=== PATIENT | male | born 1985 | race Caucasian/White ===

== ENCOUNTER 2017-02-18 11:26 | Emergency (ER) | payer SELFPAY ==
[2017-02-18] MEDS ORDERED: IPRATROPIUM-ALBUTEROL 3 ML NEB INHALATION STA (12:06)
[2017-02-18] MEDS ORDERED: methylPREDNISolone SOD SUCCI 125 MG/2 ML VIAL IV STA (12:06)
[2017-02-18] MEDS ORDERED: SODIUM CHLORIDE 0.9% 500 ML IV STA (12:06)
[2017-02-18] MEDS ORDERED: cefTRIAXone 2,000 MG in SODIUM CHLORIDE 0.9% 100 ML IVPB STA (12:11)
[2017-02-18 12:47] LABS: Basophils % (A) 1 %; CH 29.2; CHCM 35.4; Eosinophils # (A) 0.1 k/uL (0-0.7); Eosinophils % (A) 2 %; HCT 44.8 % (39.0-53.0); HDW 3.06; HGB 15.7 gm/dL (13.0-17.5); Luc # (Auto) 0.17; Luc % (Auto) 4; Lymphocytes # (A) 1.3 k/uL (1.0-4.8); Lymphocytes % (A) 26 %; MCH 29.1 pg (25.0-35.0); MCHC 35.1 g/dL (31.0-37.0); Mean Platelet Volume 7.4; Monocytes # (A) 0.3 k/uL (0-1.0); Monocytes % (A) 6 %; Neutrophils # (A) 3.1 k/uL (1.3-7.7); Neutrophils % (A) 62 %; RDW 13.3 % (11.5-15.5); WBC 4.9 k/uL (3.8-10.6); WBC (Perox) 5.13
--- NOTE | 2017-02-18 12:54 | XR ---
EXAMINATION TYPE: XR chest 2V DATE OF EXAM: 02/18/2017 COMPARISON: NONE HISTORY: Cough and congestion with shortness of breath rule out pneumonia TECHNIQUE: Frontal and lateral views of the chest are obtained. FINDINGS: Seen on 2 views there appears to be increased opacity right middle lobe worrisome for deve loping infiltrate. Left lung is clear. No pleural effusion or pneumothorax is seen bilaterally. The c ardiac silhouette size is within normal limits. The osseous structures are intact. IMPRESSION: Suspicious opacity worrisome for developing right middle lobe infiltrate.
[2017-02-18 12:57] LABS: Anion Gap 8 mmol/L; Blood Urea Nitrogen 8 mg/dL (9-20); Calcium 9.2 mg/dL (8.4-10.2); Carbon Dioxide 24 mmol/L (22-30); Chloride 109 mmol/L (98-107); Glucose 106 mg/dL (74-99); Non-African American GFR(MDRD) >60 (>60 ml/min/1.73 sqM); Potassium 4.3 mmol/L (3.5-5.1); Sodium 141 mmol/L (137-145)
--- NOTE | 2017-02-18 13:30 | ED ---
URI HPI - General Chief Complaint: Upper Respiratory Infection Stated Complaint: WILFRIDO, BACK PAIN, WHEEZING, FEVER Time Seen by Provider: 02/18/17 11:59 Source: patient Mode of arrival: ambulatory Limitations: no limitations - History of Present Illness Initial Comments: 32 years old male mentioned to the last 6 days, been coughing he did spit up some blood as well and he is not able to bring up a bunch of phlegm he feels it stuck to Bring it up. He been previously had a fever off-and-on for the last few days he does have a history of tobacco dependence were also 18 years he felt quite sec wasn't able to go to work yesterday and today. Also complains about chest pain only with deep breaths no trauma to the chest, degree of system is unremarkable otherwise - Related Data Previous Rx's Medication Instructions Recorded Levofloxacin [Levaquin] 750 mg PO DAILY #7 tab 02/18/17 Allergies Allergy/AdvReac Type Severity Reaction Status Date / Time No Known Allergies Allergy Verified 02/18/17 11:43 Review of Systems ROS Statement: Those systems with pertinent positive or pertinent negative responses have been documented in the HPI. ROS Other: All systems not noted in ROS Statement are negative. Past Medical History Additional Past Medical History / Comment(s): Hepatitic C History of Any Multi-Drug Resistant Organisms: None Reported Past Surgical History: No Surgical Hx Reported Past Psychological History: No Psychological Hx Reported Smoking Status: Current every day smoker Past Alcohol Use History: None Reported Past Drug Use History: Marijuana General Exam - General Exam Comments Initial Comments: General: The patient is awake and alert, in no distress, and does not appear acutely ill. There is no coughing quite bad Skin: Skin is warm and dry and no rashes or lesions are noted. Eye: Pupils are equal, round and reactive to light, extra-ocular movements are intact; there is normal conjunctiva bilaterally. Ears, nose, mouth and throat: There are moist mucous membranes and no oral lesions. Neck: The neck is supple, there is no tenderness or JVD. Cardiovascular: There is a regular rate and rhythm. No murmur, rub or gallop is appreciated. Respiratory: To auscultation bilateral, noticed some crackles on the right side and he is wheezing bilateral Gastrointestinal: Soft, non-distended, non-tender abdomen without masses or organomegaly noted. There is no rebound or guarding present. Bowel sounds are unremarkable. Back: There is no tenderness to palpation in the midline. There is no obvious deformity. Musculoskeletal: Normal ROM, no tenderness, There is no pedal edema. There is no calf tenderness or swelling. No cords were appreciated. Neurological: CN II-XII intact, Cranial nerves III through XII are intact. There are no obvious motor or sensory deficits. Coordination appears grossly intact. Speech is normal. Psychiatric: Cooperative, appropriate mood & affect, normal judgment. Limitations: no limitations Course Vital Signs 02/18/17 02/18/17 02/18/17 11:32 12:19 12:25 Temperature 97.4 F L Pulse Rate 85 84 80 Respiratory 18 Rate Blood Pressure 131/69 O2 Sat by Pulse 95 Oximetry Labs are reviewed along with the imaging, CBC is normal, d-dimer is negative chest x-ray points out towards developing infiltrate and exam is consistent with a COPD Medical Decision Making - Lab Data Result diagrams: 02/18/17 12:30 02/18/17 12:30 Lab Results 02/18/17 02/18/17 02/18/17 Range/Units 12:30 12:30 12:30 WBC 4.9 (3.8-10.6) k/uL RBC 5.40 (4.30-5.90) m/uL Hgb 15.7 (13.0-17.5) gm/dL Hct 44.8 (39.0-53.0) % MCV 83.0 (80.0-100.0) fL MCH 29.1 (25.0-35.0) pg MCHC 35.1 (31.0-37.0) g/dL RDW 13.3 (11.5-15.5) % Plt Count 236 (150-450) k/uL Neutrophils % 62 % Lymphocytes % 26 % Monocytes % 6 % Eosinophils % 2 % Basophils % 1 % Neutrophils # 3.1 (1.3-7.7) k/uL Lymphocytes # 1.3 (1.0-4.8) k/uL Monocytes # 0.3 (0-1.0) k/uL Eosinophils # 0.1 (0-0.7) k/uL Basophils # 0.0 (0-0.2) k/uL D-Dimer 0.57 (<0.60) mg/L FEU Sodium 141 (137-145) mmol/L Potassium 4.3 (3.5-5.1) mmol/L Chloride 109 H (98-107) mmol/L Carbon Dioxide 24 (22-30) mmol/L Anion Gap 8 mmol/L BUN 8 L (9-20) mg/dL Creatinine 0.70 (0.66-1.25) mg/dL Est GFR (MDRD) Af Amer >60 (>60 ml/min/1.73 sqM) Est GFR (MDRD) Non-Af >60 (>60 ml/min/1.73 sqM) Glucose 106 H (74-99) mg/dL Calcium 9.2 (8.4-10.2) mg/dL Influenza Type A RNA (Not Detectd) Influenza Type B (PCR) (Not Detectd) 02/18/17 Range/Units 12:30 WBC (3.8-10.6) k/uL RBC (4.30-5.90) m/uL Hgb (13.0-17.5) gm/dL Hct (39.0-53.0) % MCV (80.0-100.0) fL MCH (25.0-35.0) pg MCHC (31.0-37.0) g/dL RDW (11.5-15.5) % Plt Count (150-450) k/uL Neutrophils % % Lymphocytes % % Monocytes % % Eosinophils % % Basophils % % Neutrophils # (1.3-7.7) k/uL Lymphocytes # (1.0-4.8) k/uL Monocytes # (0-1.0) k/uL Eosinophils # (0-0.7) k/uL Basophils # (0-0.2) k/uL D-Dimer (<0.60) mg/L FEU Sodium (137-145) mmol/L Potassium (3.5-5.1) mmol/L Chloride (98-107) mmol/L Carbon Dioxide (22-30) mmol/L Anion Gap mmol/L BUN (9-20) mg/dL Creatinine (0.66-1.25) mg/dL Est GFR (MDRD) Af Amer (>60 ml/min/1.73 sqM) Est GFR (MDRD) Non-Af (>60 ml/min/1.73 sqM) Glucose (74-99) mg/dL Calcium (8.4-10.2) mg/dL Influenza Type A RNA Not Detected (Not Detectd) Influenza Type B (PCR) Not Detected (Not Detectd) Disposition Clinical Impression: Pneumonia, COPD (chronic obstructive pulmonary disease) Disposition: HOME SELF-CARE Condition: Good Instructions: Pneumonia (ED) Prescriptions: Levofloxacin [Levaquin] 750 mg PO DAILY #7 tab Referrals: None,Stated [Primary Care Provider] - 1-2 days
[2017-02-18] MEDS ORDERED: AZITHROMYCIN 500 MG TAB PO STA (13:31)
[2017-02-18 14:02] VITALS: BP 117/56; PULSE 83; RESP 16; TEMP 98.1
== END 2017-02-18 14:07 | disposition home or self-care (01) ==
LOC: EC 11:26
DX: J44.0 Chronic obstructive pulmonary disease with (acute) lower respiratory infection (principal); J18.9 Pneumonia, unspecified organism; F17.200 Nicotine dependence, unspecified, uncomplicated
CPT/HCPCS: 36415; 94640; 85379; 80048; 85025; 87502; 71020; 99284; 96365; 96366; 96375; J2930; J0696

== ENCOUNTER 2017-03-30 08:41 | Emergency (ER) | payer OTHER ==
[2017-03-30 08:48] VITALS: RESP 18; TEMP 97.8
[2017-03-30] MEDS ORDERED: ONDANSETRON 4 MG/2 ML VIAL IVP STA (09:01)
[2017-03-30] MEDS ORDERED: KETOROLAC 30 MG/ML 1 ML VIAL IVP STA (09:01)
[2017-03-30] MEDS ORDERED: SODIUM CHLORIDE 0.9% 500 ML IV STA (09:01)
[2017-03-30] MEDS ORDERED: SODIUM CHLORIDE 0.9% 1,000 ML IV STA (09:01)
--- NOTE | 2017-03-30 09:37 | ED ---
Abdominal Pain HPI - General Chief Complaint: Abdominal Pain Stated Complaint: side pain Time Seen by Provider: 03/30/17 08:49 Source: patient, RN notes reviewed Mode of arrival: ambulatory Limitations: no limitations - History of Present Illness Initial Comments: This a 32-year-old male presents emergency Department chief complaint left side pain. Patient states pain started yesterday was sudden onset of pain. Patient states pain radiates on his left low back to his left lower abdomen. Patient states that nothing makes the pain feel better or worse. Patient's had some nausea no vomiting no diarrhea no constipation. He states his urine looked very dark ashtray when it started. He states that he developed bloody though. Denies any dysuria, chest pain or shortness breath. - Related Data Previous Rx's Medication Instructions Recorded Acetaminophen-Codeine 300-30mg 1 tab PO Q4H PRN #20 tablet 03/30/17 [Tylenol #3] Ibuprofen [Motrin] 600 mg PO Q8HR PRN #30 tab 03/30/17 Allergies Allergy/AdvReac Type Severity Reaction Status Date / Time No Known Allergies Allergy Verified 03/30/17 09:13 Review of Systems ROS Statement: Those systems with pertinent positive or pertinent negative responses have been documented in the HPI. ROS Other: All systems not noted in ROS Statement are negative. Past Medical History Additional Past Medical History / Comment(s): Hepatitic C History of Any Multi-Drug Resistant Organisms: None Reported Past Surgical History: No Surgical Hx Reported Past Psychological History: No Psychological Hx Reported Smoking Status: Current every day smoker Past Alcohol Use History: None Reported Past Drug Use History: Marijuana General Exam Limitations: no limitations General appearance: alert, in no apparent distress Head exam: Present: atraumatic, normocephalic, normal inspection Respiratory exam: Present: normal lung sounds bilaterally. Absent: respiratory distress, wheezes, rales, rhonchi, stridor Cardiovascular Exam: Present: regular rate, normal rhythm, normal heart sounds. Absent: systolic murmur, diastolic murmur, rubs, gallop, clicks GI/Abdominal exam: Present: soft, normal bowel sounds. Absent: distended, tenderness, guarding, rebound, rigid Back exam: Absent: CVA tenderness (R), CVA tenderness (L) Skin exam: Present: warm, dry, intact, normal color. Absent: rash Course Vital Signs 03/30/17 03/30/17 08:45 10:42 Temperature 97.8 F Pulse Rate 93 68 Respiratory 18 18 Rate Blood Pressure 129/77 124/58 O2 Sat by Pulse 99 96 Oximetry Medical Decision Making - Medical Decision Making 32-year-old male presented unresponsive for left flank pain. Patient's lab work , x-ray was reviewed there is no acute abnormality. Patient does not have any anterior more consistent with stone. Patient pain may be muscle skeletal in nature at this time. Patient will be discharged advised follow-up with PCP return parameters were discussed. - Lab Data Result diagrams: 03/30/17 09:15 03/30/17 09:15 Lab Results 03/30/17 03/30/17 03/30/17 Range/Units 09:15 09:15 09:25 WBC 7.7 (3.8-10.6) k/uL RBC 5.12 (4.30-5.90) m/uL Hgb 14.9 (13.0-17.5) gm/dL Hct 44.7 (39.0-53.0) % MCV 87.3 (80.0-100.0) fL MCH 29.0 (25.0-35.0) pg MCHC 33.3 (31.0-37.0) g/dL RDW 13.5 (11.5-15.5) % Plt Count 242 (150-450) k/uL Neutrophils % 68 % Lymphocytes % 16 % Monocytes % 10 % Eosinophils % 2 % Basophils % 1 % Neutrophils # 5.2 (1.3-7.7) k/uL Lymphocytes # 1.2 (1.0-4.8) k/uL Monocytes # 0.7 (0-1.0) k/uL Eosinophils # 0.2 (0-0.7) k/uL Basophils # 0.0 (0-0.2) k/uL Sodium 139 (137-145) mmol/L Potassium 4.4 (3.5-5.1) mmol/L Chloride 107 (98-107) mmol/L Carbon Dioxide 23 (22-30) mmol/L Anion Gap 9 mmol/L BUN 9 (9-20) mg/dL Creatinine 0.81 (0.66-1.25) mg/dL Est GFR (MDRD) Af Amer >60 (>60 ml/min/1.73 sqM) Est GFR (MDRD) Non-Af >60 (>60 ml/min/1.73 sqM) Glucose 91 (74-99) mg/dL Calcium 8.9 (8.4-10.2) mg/dL Total Bilirubin 0.6 (0.2-1.3) mg/dL AST 54 (17-59) U/L ALT 89 H (21-72) U/L Alkaline Phosphatase 125 (38-126) U/L Total Protein 6.9 (6.3-8.2) g/dL Albumin 3.6 (3.5-5.0) g/dL Amylase 73 (30-110) U/L Lipase 89 (23-300) U/L Urine Color Yellow Urine Appearance Clear (Clear) Urine pH 6.0 (5.0-8.0) Ur Specific Lydia 1.010 (1.001-1.035) Urine Protein Negative (Negative) Urine Glucose (UA) Negative (Negative) Urine Ketones Negative (Negative) Urine Blood Negative (Negative) Urine Nitrite Negative (Negative) Urine Bilirubin Negative (Negative) Urine Urobilinogen <2.0 (<2.0) mg/dL Ur Leukocyte Esterase Negative (Negative) Disposition Clinical Impression: Flank pain Disposition: HOME SELF-CARE Condition: Stable Instructions: Flank Pain (ED) Additional Instructions: Please return to the Emergency Department if symptoms worsen or any other concerns. Prescriptions: Acetaminophen-Codeine 300-30mg [Tylenol #3] 1 tab PO Q4H PRN #20 tablet PRN Reason: pain Ibuprofen [Motrin] 600 mg PO Q8HR PRN #30 tab PRN Reason: Pain Referrals: None,Stated [Primary Care Provider] - 1-2 days Isabel Barnett MD [STAFF PHYSICIAN] - 1-2 days Time of Disposition: 10:47
[2017-03-30 09:42] LABS: Appearance,Urine Clear (Clear); Bilirubin,Urine Negative (Negative); Glucose,Urine (UA) Negative (Negative); Ketones,Urine Negative (Negative); Leukocyte Esterase,Urine Negative (Negative); Nitrite,Urine Negative (Negative); Protein,Urine Negative (Negative); UA Billing (MACRO vs. MICRO) CHEM; Urobilinogen,Urine <2.0 mg/dL (<2.0)
[2017-03-30 09:49] LABS: Basophils % (A) 1 %; CH 29.6; CHCM 34.1; Eosinophils # (A) 0.2 k/uL (0-0.7); Eosinophils % (A) 2 %; HCT 44.7 % (39.0-53.0); HDW 2.78; HGB 14.9 gm/dL (13.0-17.5); Luc # (Auto) 0.28; Luc % (Auto) 4; Lymphocytes # (A) 1.2 k/uL (1.0-4.8); Lymphocytes % (A) 16 %; MCHC 33.3 g/dL (31.0-37.0); MCV 87.3 fL (80.0-100.0); Mean Platelet Volume 7.1; Monocytes # (A) 0.7 k/uL (0-1.0); Monocytes % (A) 10 %; Neutrophils # (A) 5.2 k/uL (1.3-7.7); Neutrophils % (A) 68 %; RBC 5.12 m/uL (4.30-5.90); RDW 13.5 % (11.5-15.5); WBC 7.7 k/uL (3.8-10.6); WBC (Perox) 7.58
[2017-03-30 09:50] LABS: ALT 89 U/L (21-72); AST 54 U/L (17-59); Alkaline Phosphatase 125 U/L (38-126); Amylase 73 U/L (30-110); Anion Gap 9 mmol/L; Blood Urea Nitrogen 9 mg/dL (9-20); Calcium 8.9 mg/dL (8.4-10.2); Carbon Dioxide 23 mmol/L (22-30); Chloride 107 mmol/L (98-107); Glucose 91 mg/dL (74-99); Non-African American GFR(MDRD) >60 (>60 ml/min/1.73 sqM); Potassium 4.4 mmol/L (3.5-5.1); Sodium 139 mmol/L (137-145); Total Bilirubin 0.6 mg/dL (0.2-1.3); Total Protein 6.9 g/dL (6.3-8.2)
[2017-03-30 10:44] VITALS: BP 124/58; PULSE 68
--- NOTE | 2017-03-30 18:26 | XR ---
EXAMINATION TYPE: XR KUB DATE OF EXAM: 03/30/2017 COMPARISON: NONE HISTORY: Left flank pain TECHNIQUE: 2 views FINDINGS: Bowel gas pattern is normal. There is no sign of intestinal obstruction or pneumoperitoneum . Fecal pattern is normal. There are no pathologic calcifications. Lung bases are clear. There is no sign of a mass. Bony structures appear intact. IMPRESSION: Nonacute abdomen.
== END 2017-03-30 11:01 | disposition home or self-care (01) ==
LOC: EC 08:41
DX: R10.9 Unspecified abdominal pain (principal); R11.0 Nausea; F17.200 Nicotine dependence, unspecified, uncomplicated
CPT/HCPCS: 99284 ×2; 96374 ×2; 96375 ×2; 96361 ×2; 36415; 80053; 82150; 83690; 85025; 81003; 74000; J2405; J1885

== ENCOUNTER 2017-04-12 06:57 | Emergency (ER) | payer OTHER ==
[2017-04-12 07:03] VITALS: RESP 16; TEMP 97.4
[2017-04-12] MEDS ORDERED: METOCLOPRAMIDE 5 MG/ML 2 ML VIAL IM ONE (07:29)
--- NOTE | 2017-04-12 07:31 | ED ---
General Adult HPI - General Chief complaint: Headache Stated complaint: Headache, Dizzy Time Seen by Provider: 04/12/17 07:23 Source: patient, RN notes reviewed, old records reviewed Mode of arrival: wheelchair Limitations: no limitations - History of Present Illness Initial comments: Patient is a pleasant 32-year-old male presenting to the emergency department with complaints of headache. Onset was yesterday evening. Gradual onset over a few hours. Headache is on the top of the head. Headache has been severe as 8 /10 however currently a 6 or 7/10. Patient does have some photophobia. Patient has also had some nausea without vomiting. Patient feels somewhat lightheaded. No weakness. No confusion. No history of chronic headaches. - Related Data Previous Rx's Medication Instructions Recorded Acetaminophen-Codeine 300-30mg 1 tab PO Q4H PRN #20 tablet 03/30/17 [Tylenol #3] Ibuprofen [Motrin] 600 mg PO Q8HR PRN #30 tab 03/30/17 Metoclopramide HCl [Reglan] 10 mg PO Q6HR PRN #15 tablet 04/12/17 Allergies Allergy/AdvReac Type Severity Reaction Status Date / Time No Known Allergies Allergy Verified 04/12/17 08:08 Review of Systems ROS Statement: Those systems with pertinent positive or pertinent negative responses have been documented in the HPI. ROS Other: All systems not noted in ROS Statement are negative. Constitutional: Denies: fever Eyes: Denies: eye pain ENT: Denies: ear pain Respiratory: Denies: cough Cardiovascular: Denies: chest pain Endocrine: Denies: fatigue Gastrointestinal: Denies: abdominal pain Genitourinary: Denies: dysuria Musculoskeletal: Denies: back pain Skin: Denies: rash Neurological: Reports: headache. Denies: weakness Past Medical History Additional Past Medical History / Comment(s): Hepatitic C History of Any Multi-Drug Resistant Organisms: None Reported Past Surgical History: No Surgical Hx Reported Past Psychological History: No Psychological Hx Reported Smoking Status: Current every day smoker Past Alcohol Use History: None Reported Past Drug Use History: Marijuana General Exam Limitations: no limitations General appearance: alert, in no apparent distress Head exam: Present: atraumatic Eye exam: Present: normal appearance, PERRL, EOMI. Absent: nystagmus ENT exam: Present: normal oropharynx Neck exam: Present: normal inspection. Absent: meningismus Respiratory exam: Present: normal lung sounds bilaterally Cardiovascular Exam: Present: regular rate, normal rhythm GI/Abdominal exam: Present: soft. Absent: tenderness Extremities exam: Present: normal inspection Neurological exam: Present: alert, oriented X3, CN II-XII intact. Absent: motor sensory deficit Expanded Speech: Present: fluid speech Cranial nerves: EOM's Intact: Normal, Facial Sensation: Normal Sensory exam: Upper Extremity Light Touch: Normal, Lower Extremity Light Touch: Normal Motor strength exam: RUE: 5, LUE: 5, RLE: 5, LLE: 5 Eye Response: (4) open spontaneously Motor Response: (6) obeys commands Verbal Response: (5) oriented Psychiatric exam: Present: normal affect, normal mood Skin exam: Present: normal color Course Vital Signs 04/12/17 07:01 Temperature 97.4 F L Pulse Rate 90 Respiratory 16 Rate Blood Pressure 113/70 O2 Sat by Pulse 96 Oximetry Medical Decision Making - Medical Decision Making Patient reevaluated and improved. Patient states discomfort is tolerable. Patient requests work note for today and return tomorrow without restrictions. - Radiology Data Radiology results: image reviewed (Computed tomography scan of the brain shows no acute process) Disposition Clinical Impression: Cephalgia Disposition: HOME SELF-CARE Condition: Stable Instructions: Acute Headache (ED) Additional Instructions: Please follow-up with your DrJuan R in the next day or 2 for recheck. Return for weakness, confusion, fever, worsening or changing symptoms or other concerns. Prescriptions: Metoclopramide HCl [Reglan] 10 mg PO Q6HR PRN #15 tablet PRN Reason: Nausea Referrals: Nicole Bruce MD [Primary Care Provider] - 1-2 days Time of Disposition: 08:36
--- NOTE | 2017-04-12 08:04 | CT ---
EXAMINATION TYPE: CT brain wo con DATE OF EXAM: 04/12/2017 COMPARISON: NONE HISTORY: Headache, Dizziness CT DLP: 1054.[address] of the brain was performed. The ventricles, basal cisterns and sulci overlying the cerebral convexities demonstrate a normal appe arance. There is no evidence for intracranial hemorrhage or sulcal effacement. No mass effects are seen. Osseous calvarium is intact. If symptoms persist consider MRI as clinically warranted. IMPRESSION: 1. No acute intracranial process is seen at this time.
[2017-04-12 09:42] VITALS: BP 111/56; PULSE 79
== END 2017-04-12 09:39 | disposition home or self-care (01) ==
LOC: EC 06:57
DX: R51 Headache (principal); R11.0 Nausea; R42 Dizziness and giddiness; H53.149 Visual discomfort, unspecified; F17.200 Nicotine dependence, unspecified, uncomplicated
CPT/HCPCS: 70450; 99284; 96372; J2765

== ENCOUNTER 2018-03-06 13:28 | Inpatient (IN) | payer MEDICAID, OTHER ==
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
[2018-03-06] MEDS ORDERED: MAGNESIUM HYDROXIDE 2,400 MG/10 ML CUP PO PRN (18:36)
[2018-03-06] MEDS ORDERED: ZIPRASIDONE 20 MG VIAL IM PRN (18:36)
[2018-03-06] MEDS ORDERED: ACETAMINOPHEN TAB 325 MG TAB PO PRN (18:36)
[2018-03-06] MEDS ORDERED: LORazepam 1 MG TAB PO PRN (18:36)
[2018-03-06] MEDS ORDERED: MAG HYDROX/AL HYDROX/SIMETH 30 ML CUP PO PRN (18:36)
[2018-03-06 18:49] VITALS: BMI 30.6
[2018-03-07 09:14] LABS: Basophils % (A) 1 %; Eosinophils # (A) 0.2 k/uL (0-0.7); Eosinophils % (A) 4 %; HCT 46.6 % (39.0-53.0); HGB 15.4 gm/dL (13.0-17.5); Lymphocytes % (A) 33 %; MCH 28.6 pg (25.0-35.0); MCV 86.8 fL (80.0-100.0); Mean Platelet Volume 6.9; Monocytes # (A) 0.6 k/uL (0-1.0); Monocytes % (A) 10 %; Neutrophils # (A) 3.1 k/uL (1.3-7.7); Neutrophils % (A) 51 %; Platelet Count 241 k/uL (150-450); RBC 5.36 m/uL (4.30-5.90); RDW 13.8 % (11.5-15.5)
[2018-03-07 09:24] LABS: ALT 984 U/L (21-72); AST 619 U/L (17-59); Albumin 4.2 g/dL (3.5-5.0); Alkaline Phosphatase 165 U/L (38-126); Anion Gap 9 mmol/L; Blood Urea Nitrogen 11 mg/dL (9-20); Calcium 9.4 mg/dL (8.4-10.2); Carbon Dioxide 26 mmol/L (22-30); Chloride 105 mmol/L (98-107); Glucose 91 mg/dL (74-99); Potassium 4.6 mmol/L (3.5-5.1); Sodium 140 mmol/L (137-145); Total Bilirubin 1.4 mg/dL (0.2-1.3); Total Protein 7.7 g/dL (6.3-8.2)
[2018-03-07] MEDS: NICOTINE 14MG/24HR PATCH TRANSDERM SCH ×2 (10:22→13:41)
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
[2018-03-07 16:54] LABS: Appearance,Urine Clear (Clear); Bilirubin,Urine Negative (Negative); Blood,Urine Negative (Negative); Color,Urine Yellow; Glucose,Urine (UA) Negative (Negative); Ketones,Urine Negative (Negative); Leukocyte Esterase,Urine Negative (Negative); Nitrite,Urine Negative (Negative); Protein,Urine Negative (Negative); Specific Gravity,Urine 1.016 (1.001-1.035)
[2018-03-07 17:04] LABS: Amphetamine Screen,Urine Not Detected (NotDetected); Barbiturate Screen,Urine Not Detected (NotDetected); Benzodiazepines Screen,Urine Not Detected (NotDetected); Cocaine Screen,Urine Not Detected (NotDetected); Methadone Screen, Urine Not Detected (NotDetected); Opiate Screen,Urine Not Detected (NotDetected); Oxycodone Screen, Urine Not Detected (NotDetected); Phencyclidine Screen,Urine Not Detected (NotDetected); Tricyclic Antidepressant,Urine Not Detected (NotDetected); Urn Cannabinoid Scrn Detected (NotDetected)
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
[2018-03-07] MEDS: IOPAMIDOL-300 CONTRAST 30 ML VIAL (ORAL USE) PO PRN ×2 (18:18→19:28)
[2018-03-07] MEDS ORDERED: lamoTRIgine 25 MG TAB PO SCH (20:00)
--- NOTE | 2018-03-07 20:14 | CT ---
EXAMINATION TYPE: CT abdomen pelvis w con DATE OF EXAM: 03/07/2018 COMPARISON: None HISTORY: Right lower abdominal mass. CT DLP: 730.9 mGycm Automated exposure control for dose reduction was used. TECHNIQUE: Helical acquisition of images was performed from the lung bases through the pelvis. CONTRAST: Performed with Oral Contrast and with IV Contrast, patient injected with 100ml mL of Isovue 300. FINDINGS: Lung bases are clear. There is no pleural effusion. Heart size is normal. There is no pericardial eff usion. Liver spleen pancreas gallbladder appear normal. Bile ducts are not dilated. There is no adrenal mass . The kidneys show satisfactory contrast opacification. There is no hydronephrosis. There is no retro peritoneal adenopathy. There is no mesenteric adenopathy. I see no intestinal wall thickening. There are no dilated loops. Bladder distends smoothly. Appendix appears normal. Lumbar spine is intact. There is no inguinal hernia. There is no umbilical hernia. Stomach appears no rmal. Soft tissues are unremarkable. IMPRESSION: NEGATIVE CT SCAN OF THE ABDOMEN AND PELVIS. NO EVIDENCE OF RIGHT LOWER ABDOMINAL MASS.
--- NOTE | 2018-03-07 20:38 | US ---
EXAMINATION TYPE: US thyroid st tissue head/neck DATE OF EXAM: 03/07/2018 COMPARISON: NONE CLINICAL HISTORY: Posterior neck mass. EXAMINATION TYPE: US thyroid st tissue head/neck DATE OF EXAM: 03/07/2018 COMPARISON: NONE CLINICAL HISTORY: Posterior neck mass. Posterior right neck. lump No definite mass identified with exam. IMPRESSION: The right side posterior neck region was scanned in the area of concern. No discrete soco id or cystic mass was identified.
[2018-03-07] MEDS ORDERED: risperiDONE 0.5 MG TAB PO SCH (21:00)
[2018-03-08 02:54] LABS: Hepatitis B Core IgM Non-Reactive (Non-Reactive); Hepatitis B Surface AB- Quant 405.9 mIU/mL; Hepatitis C IgG Antibody Reactive (Non-Reactive)
[2018-03-08 07:05] VITALS: RESP 16
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
[2018-03-08 10:35] LABS: HCT 46.3 % (39.0-53.0); HGB 15.4 gm/dL (13.0-17.5); MCH 28.5 pg (25.0-35.0); MCHC 33.3 g/dL (31.0-37.0); MCV 85.7 fL (80.0-100.0); Mean Platelet Volume 7.3; Platelet Count 222 k/uL (150-450); RDW 13.5 % (11.5-15.5); WBC 5.4 k/uL (3.8-10.6)
[2018-03-08] MEDS: NICOTINE 14MG/24HR PATCH TRANSDERM SCH (10:43)
[2018-03-08 10:51] LABS: AST 683 U/L (17-59); Albumin 4.1 g/dL (3.5-5.0); Alkaline Phosphatase 153 U/L (38-126); Anion Gap 6 mmol/L; Blood Urea Nitrogen 13 mg/dL (9-20); Calcium 9.5 mg/dL (8.4-10.2); Carbon Dioxide 29 mmol/L (22-30); Chloride 105 mmol/L (98-107); Glucose 106 mg/dL (74-99); Potassium 4.5 mmol/L (3.5-5.1); Sodium 140 mmol/L (137-145); Total Bilirubin 1.3 mg/dL (0.2-1.3); Total Protein 7.5 g/dL (6.3-8.2)
[2018-03-08 11:16] LABS: ALT 1118 U/L (21-72)
[2018-03-08] MEDS ORDERED: LOPERAMIDE 2 MG CAP PO PRN (16:04)
--- NOTE | 2018-03-08 18:36 | P.PN ---
Subjective Progress Note Date: 03/08/18 The patient was seen and examined at the bedside. Patient was in good spirits and denied any active complaints including abdominal pain, nausea, vomiting, diarrhea, constipation, fever, chills, cough or chest pain, or shortness of breath. Objective - Vital Signs Vital signs: Vital Signs Temp 98.1 F 03/08/18 06:15 Pulse 65 03/08/18 06:15 Resp 16 03/08/18 06:15 BP 141/77 03/08/18 06:15 Pulse Ox 98 03/06/18 18:00 - Exam General: Non-toxic, in no acute distress HEENT: NC/AT, anicteric sclerae, moist conjunctiva, no lid-lag, PERRLA, oropharynx clear, no erythema, exudates Cardiovascular: S1/S2 wnl, no murmurs, rubs, or gallops Lungs: Clear to auscultation, normal respiratory effort, no accessory muscle use Abdominal: Soft, nontender, non-distended, no guarding, rebound, or rigidity, normoactive bowel sounds Skin: Warm, dry Extremities: No edema or contractures Psychiatric: Alert and oriented to person, place and time, appropriate affect, Intact judgment Neuro: CN II-XII grossly intact, no focal motor deficits - Labs CBC & Chem 7: 03/08/18 09:54 03/08/18 09:54 Labs: Abnormal Lab Results - Last 24 Hours (Table) 03/07/18 03/08/18 Range/Units 08:31 09:54 Glucose 106 H (74-99) mg/dL AST 683 H (17-59) U/L ALT 1118 H (21-72) U/L Alkaline Phosphatase 153 H (38-126) U/L Hep Bs Antibody Reactive H (Non-Reactive) Hep C IgG Ab Reactive H (Non-Reactive) Assessment and Plan Plan: Hx of Hepatitis C with deranged LFTs, uptrending - Hepatitis panel reviewed. Hep C Ab reactive - Likely chronic hepatitis C - Will obtain EBV and CMV levels to r/o super-infection - Will consult GI in am for further assistance on Hepatitis C and transaminitis Abdominal and neck masses - CT abd and Neck US neg, likely lipomas Suicidality w/ hx of bipolar - Management as per Psychiatry DVT//GI prophylaxis - Low risk, patient ambulatory - No indication for GI prophylaxis
[2018-03-08] MEDS ORDERED: lamoTRIgine 25 MG TAB PO SCH (20:00)
[2018-03-09] MEDS: NICOTINE 14MG/24HR PATCH TRANSDERM SCH ×2 (09:07→09:08)
[2018-03-09 09:39] LABS: AST 695 U/L (17-59); Albumin 4.4 g/dL (3.5-5.0); Alkaline Phosphatase 176 U/L (38-126); Anion Gap 9 mmol/L; Blood Urea Nitrogen 13 mg/dL (9-20); Calcium 9.5 mg/dL (8.4-10.2); Carbon Dioxide 26 mmol/L (22-30); Chloride 106 mmol/L (98-107); Glucose 128 mg/dL (74-99); Potassium 4.8 mmol/L (3.5-5.1); Sodium 141 mmol/L (137-145); Total Bilirubin 1.4 mg/dL (0.2-1.3)
[2018-03-09 10:21] LABS: ALT 1184 U/L (21-72)
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
--- NOTE | 2018-03-09 15:57 | P.CONS ---
History of Present Illness - Reason for Consult Consult date: 03/09/18 elevated liver enzymes Requesting physician: Yunior Beasley - Chief Complaint suicidal homicidal ideations - History of Present Illness 33 y/o male PMH bipolar depression, IVDA heroin abuse, hepatitis C admitted with suicidal homicidal ideation. Consult requested for elevated liver enzymes. Liver enzymes range; TB 1.3-1.4. AST 619-695. ALT 984-1184. AP 153-176. PT/INR not available. WBC 5.4-6.0. HGB 15.4. Platelet 222-241. Liver enzymes 1 year ago were within normal limits. CT abdomen no acute process; liver, spleen, gallbladder, and pancreas normal; bile ducts not dilated. He reports a known history of hepatitis C without treatment. Hepatitis screen; hepatitis A IgM antibody requested. Hepatitis C IgG antibody reactive. Hepatitis B surface antibody reactive quantatative 405.9; core and surface antigen nonreactive. Patient is unsure if he was immunized against hepatitis A/ B. Denies consumption of ETOH prior to admission and denies recent heroin usage ; quit several months ago. No new medications or recent tylenol or ASA usage. Acetaminophen and salicylate level pending. Denies fever chills hematemesis hematochezia or melena. No weight loss. No recent travels. Review of Systems Constitutional: Denies fever, chills, sweats, weight gain, or loss. HEENT: Negative for migraines, blurred vision or loss, earaches, drainage, tinnitus, oral mucosal lesions, dysphagia, or odynophagia. Cardiac: Negative for chest pain, arrhythmias, or palpitation. Respiratory: Negative for shortness of breath, hemoptysis, cough, or sputum production. Gastrointestinal: See HPI for pertinent findings. Genitourinary: Negative for hematuria, urgency, frequency, polyuria, dysuria, or penile discharge. Musculoskeletal: Negative for muscle aches, swelling, arthritis, and arthralgias. Neurologic: Negative for stroke or TIA. Endocrine: Negative for thyroid problems. Skin: Negative for rash or itching. Psychiatric: Negative history for depression and anxiety Past Medical History Additional Past Medical History / Comment(s): Hepatitic C, HPV History of Any Multi-Drug Resistant Organisms: None Reported Past Surgical History: No Surgical Hx Reported Past Psychological History: Anxiety, Bipolar Smoking Status: Current every day smoker Past Alcohol Use History: None Reported Past Drug Use History: Marijuana Medications and Allergies Allergies Allergy/AdvReac Type Severity Reaction Status Date / Time No Known Allergies Allergy Verified 03/06/18 14:23 Physical Exam Vitals: Vital Signs Temp Pulse Resp BP 03/09/18 07:02 97.6 F 85 16 112/58 - Constitutional General appearance: average body habitus - EENT Eyes: normal appearance ENT: normal oropharynx Ears: bilateral: normal - Neck Neck: normal ROM - Respiratory Respiratory: bilateral: CTA - Cardiovascular Rhythm: regular Heart sounds: normal: S1, S2 - Gastrointestinal very mild right upper quadrant tenderness no rebound or guarding General gastrointestinal: soft - Integumentary Integumentary: normal turgor - Neurologic Neurologic: CNII-XII intact - Musculoskeletal Musculoskeletal: gait normal - Psychiatric Psychiatric: A&O x's 3 Results CBC & Chem 7: 03/08/18 09:54 03/09/18 08:29 Labs: Abnormal Lab Results - Last 24 Hours (Table) 03/09/18 Range/Units 08:29 Glucose 128 H (74-99) mg/dL Total Bilirubin 1.4 H (0.2-1.3) mg/dL AST 695 H (17-59) U/L ALT 1184 H (21-72) U/L Alkaline Phosphatase 176 H (38-126) U/L CT scan - abdomen: report reviewed (Dr. Almanza) Assessment and Plan (1) Elevated liver enzymes Narrative/Plan: 33 y/o male with a known history of hepatitis C remote IVDA heroin abuse presents with suicidal homicidal ideation and elevated liver enzymes consistent with acute hepatocellular injuy. Suspect viral cause but toxic hepatitis such as medications also needs to be considered within the differential. Obstructive pathology chronic liver disease felt to be less likely. Elevated liver enzymes to this degree are most likely not related to his history of hepatitis C. Current Visit: Yes Status: Acute Code(s): R74.8 - ABNORMAL LEVELS OF OTHER SERUM ENZYMES SNOMED Code(s): 104550939 (2) Hepatitis C antibody positive in blood Current Visit: Yes Status: Acute Code(s): R76.8 - OTHER SPECIFIED ABNORMAL IMMUNOLOGICAL FINDINGS IN SERUM SNOMED Code(s): 226817580 (3) Hepatitis B antibody positive Narrative/Plan: Consistent with previous infection or from immunization. Current Visit: Yes Status: Acute Code(s): R76.8 - OTHER SPECIFIED ABNORMAL IMMUNOLOGICAL FINDINGS IN SERUM SNOMED Code(s): 147682777 Plan: 1. Hepatitis A IgM. Hepatitis C quantatative/genotype requested. 2. HSV, CMV, EBV HIV, acetaminophen, salicylate level requested. 3. US abdomen RUQ. 4. Daily CMP PT INR. 5. Avoid hepatotoxic medications. 6. Dr. Almanza discussed case and plan of care with Dr. Beasley. Thank you for this kind referral and the opportunity to participate in the care of your patient. This consultation was discussed with Dr. Almanza. The impression and plan of care have been directed as dictated.
[2018-03-09 16:58] LABS: Hepatitis B Virus DNA Not detected (Not detected); Hepatitis B Virus DNA, Quant <10 IU/mL (<10); Log HBV IU/mL <1.00 (<1.00)
[2018-03-09 17:27] LABS: EBV-VCA (IgG) >8.0 AI
[2018-03-09] MEDS ORDERED: CALCIUM CARBONATE 500 MG CHEWABLE PO PRN (17:50)
--- NOTE | 2018-03-09 19:52 | P.PN ---
Subjective Progress Note Date: 03/09/18 Patient was seen and examined at bedside. The patient is good spirits and denied any active complaints including abdominal pain, nausea, vomiting, diarrhea, constipation, cough, chest pain, shortness of breath, or fever. Objective - Vital Signs Vital signs: Vital Signs Temp 97.6 F 03/09/18 07:02 Pulse 85 03/09/18 07:02 Resp 16 03/09/18 07:02 BP 112/58 03/09/18 07:02 Pulse Ox 98 03/06/18 18:00 - Exam General: Non-toxic, in no acute distress HEENT: NC/AT, anicteric sclerae, moist conjunctiva, no lid-lag, PERRLA, oropharynx clear, no erythema, exudates Cardiovascular: S1/S2 wnl, no murmurs, rubs, or gallops Lungs: Clear to auscultation, normal respiratory effort, no accessory muscle use Abdominal: Soft, nontender, non-distended, no guarding, rebound, or rigidity, normoactive bowel sounds Skin: Warm, dry Extremities: No edema or contractures Psychiatric: Alert and oriented to person, place and time, appropriate affect, Intact judgment Neuro: CN II-XII grossly intact, no focal motor deficits - Labs CBC & Chem 7: 03/08/18 09:54 03/09/18 08:29 Labs: Abnormal Lab Results - Last 24 Hours (Table) 03/09/18 03/09/18 Range/Units 08:29 08:29 Glucose 128 H (74-99) mg/dL Total Bilirubin 1.4 H (0.2-1.3) mg/dL AST 695 H (17-59) U/L ALT 1184 H (21-72) U/L Alkaline Phosphatase 176 H (38-126) U/L EBV Capsid Ag IgG Intrp POSITIVE H (NEGATIVE) EBV Nuc Ag IgG Interp POSITIVE H (NEGATIVE) Assessment and Plan Plan: Hx of Hepatitis C with deranged LFTs, uptrending - Hepatitis panel reviewed. Hep C Ab reactive - Likely chronic hepatitis C - GI consulted, recommendations appreciated - Will obtain remaining hepatitis panel - EBV IgG likely represents a history of exposure Abdominal and neck masses - CT abd and Neck US neg, likely lipomas Suicidality w/ hx of bipolar - Management as per Psychiatry DVT//GI prophylaxis - Low risk, patient ambulatory - No indication for GI prophylaxis
[2018-03-09 19:56] LABS: Acetaminophen <10.0 ug/mL; Salicylate <1.0 mg/dL
[2018-03-09] MEDS: lamoTRIgine 100 MG TAB PO SCH (20:22)
[2018-03-10] MEDS: NICOTINE 14MG/24HR PATCH TRANSDERM SCH (08:08)
[2018-03-10 08:53] LABS: INR 1.1 (<1.2); Prothrombin Time 10.9 sec (9.0-12.0)
[2018-03-10 09:04] LABS: ALT 947 U/L (21-72); AST 463 U/L (17-59); Albumin 4.1 g/dL (3.5-5.0); Alkaline Phosphatase 160 U/L (38-126); Anion Gap 9 mmol/L; Blood Urea Nitrogen 11 mg/dL (9-20); Calcium 9.2 mg/dL (8.4-10.2); Carbon Dioxide 27 mmol/L (22-30); Chloride 106 mmol/L (98-107); Glucose 88 mg/dL (74-99); Potassium 4.4 mmol/L (3.5-5.1); Sodium 142 mmol/L (137-145); Total Bilirubin 1.2 mg/dL (0.2-1.3); Total Protein 7.5 g/dL (6.3-8.2)
--- NOTE | 2018-03-10 09:45 | US ---
EXAMINATION TYPE: US abdomen limited DATE OF EXAM: 03/10/2018 COMPARISON: CT abdomen and pelvis from 3 days ago. CLINICAL HISTORY: elevated liver enzymes. EXAM MEASUREMENTS: Liver Length: 11.8 cm Gallbladder Wall: 0.3 cm CBD: 0.2 cm Right Kidney: 10.2 x 4.8 x 5.1 cm Pancreas: body and tail obscured by overlying bowel gas Liver: Mildly heterogeneous Gallbladder: wnl Evidence for sonographic Hanna's sign: No CBD: wnl Right Kidney: No hydronephrosis or masses seen IMPRESSION: No worrisome intrahepatic mass or intrahepatic ductal dilatation is seen. Mild heterogene ous appearance could reflect product of diffuse fatty infiltration or underlying hepatocellular disea se. Spleen is noted mildly enlarged on recent CT coronal image 48 measuring 13.5 cm long axis.
--- NOTE | 2018-03-10 11:37 | P.PN ---
Subjective Progress Note Date: 03/10/18 Principal diagnosis: Hepatitis LFTs improved. Feels well. Denies abdominal pain. Afebrile. Total bilirubin 1.2. AST 463. ALT 947. AP 160. Ultrasound no worrisome intrahepatic or intrahepatic ductal dilatation/ masses seen. No gallstones. Viral studies reviewed and consistent with previous exposure. Hepatitis A IgM pending. Acetaminophen less than 10. Objective - Vital Signs Vital signs: Vital Signs Temp 97.7 F 03/10/18 06:44 Pulse 73 03/10/18 06:44 Resp 16 03/10/18 06:44 BP 119/58 03/10/18 06:44 Pulse Ox 98 03/06/18 18:00 - Exam General appearance: The patient is alert, oriented, in no acute distress. HET: Head is normocephalic and atraumatic. Pupils are equal and reactive. Oropharynx is clear without lesions. Neck: Supple without lymphadenopathy. Trachea midline. Heart: S1 S2. Regular rate and rhythm. Lungs: No crackles or wheezes are heard. Abdomen: Soft, nontender, nondistended with bowel sounds. No peritoneal signs. No palpable organomegaly or masses. Extremities: Normal skin color and turgor. No cyanosis, rash, ulceration, clubbing, or edema. Radial and pedal pulses are 2/4 bilaterally. Neurological: No focal deficits. Strength and sensation are grossly intact. - Labs CBC & Chem 7: 03/08/18 09:54 03/10/18 08:26 Labs: Abnormal Lab Results - Last 24 Hours (Table) 03/09/18 03/10/18 Range/Units 08:29 08:26 AST 463 H (17-59) U/L ALT 947 H (21-72) U/L Alkaline Phosphatase 160 H (38-126) U/L EBV Capsid Ag IgG Intrp POSITIVE H (NEGATIVE) EBV Nuc Ag IgG Interp POSITIVE H (NEGATIVE) Assessment and Plan (1) Elevated liver enzymes Narrative/Plan: 33 y/o male with a known history of hepatitis C remote IVDA heroin abuse presents with suicidal homicidal ideation and elevated liver enzymes consistent with acute hepatocellular injuy. Suspect viral cause but toxic hepatitis such as medications also needs to be considered within the differential. Obstructive pathology chronic liver disease felt to be less likely. Elevated liver enzymes to this degree are most likely not related to his history of hepatitis C. Current Visit: Yes Status: Acute Code(s): R74.8 - ABNORMAL LEVELS OF OTHER SERUM ENZYMES SNOMED Code(s): 269318419 (2) Hepatitis C antibody positive in blood Current Visit: Yes Status: Acute Code(s): R76.8 - OTHER SPECIFIED ABNORMAL IMMUNOLOGICAL FINDINGS IN SERUM SNOMED Code(s): 481705684 (3) Hepatitis B antibody positive Narrative/Plan: Consistent with previous infection or from immunization. Current Visit: Yes Status: Acute Code(s): R76.8 - OTHER SPECIFIED ABNORMAL IMMUNOLOGICAL FINDINGS IN SERUM SNOMED Code(s): 399598036 Plan: 1. Continue supportive measures. Discharge per psychiatry and medicine. Return to office after discharge for reevaluation and discussion of possible hepatitis C treatment. Repeat CMP in the outpatient setting 5-7 days. Assessment and plan a care discussed with Dr. Almanza
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
[2018-03-10 14:25] LABS: HCV Quant Log 5.62 (<1.08)
[2018-03-10 14:46] LABS: Hepatitis BE Antibody NEG (Negative)
[2018-03-10 14:49] LABS: Hepatitis BE Antigen NEG (Negative)
[2018-03-10 18:29] LABS: HIV 1 AB Non-Reactive (Non-Reactive); HIV AB P24 Non-Reactive (Non-Reactive); HIV P24 AG Non-Reactive (Non-Reactive)
[2018-03-10] MEDS: lamoTRIgine 100 MG TAB PO SCH (20:25)
[2018-03-10] MEDS: LORazepam 1 MG TAB PO PRN (23:10)
[2018-03-11] MEDS: NICOTINE 14MG/24HR PATCH TRANSDERM SCH (08:13)
--- NOTE | 2018-03-11 10:57 | P.PN ---
Progress Note - Text Interval history: The patient's is found in his room he follows me to an interview room. He reports that he feels he stabilizing. He is comfortable with the Lamictal he has no questions regarding that medication. He spent several minutes discussing concerns he has regarding a female peer. We discussed measures that are being taking to keep them separate. We discussed that he is safe. He does feel uncomfortable attending groups with this peer. He did have several questions regarding his diagnosis and those were addressed. Mental status exam: The patient is alert he is pleasant and cooperative. He is dressed in his own clothing. Eye contact is appropriate speech is fluent spontaneous nonpressured. He reports no suicidal or homicidal ideation intent or plan. He reports no auditory or visual hallucinations or any specific delusions. There is no observed evidence of psychosis hypomania or caro. Insight and judgment improving. He demonstrates no verbal or physical aggressiveness. Affect is constricted initially but he later demonstrates a limited range. He is oriented to person place and date. Plan: The patient will continue on his current medication. We will monitor him for safety. He is encouraged to participate in the milieu when possible. Vital signs reviewed.
[2018-03-11] MEDS: lamoTRIgine 100 MG TAB PO SCH (20:55)
[2018-03-11] MEDS: LORazepam 1 MG TAB PO PRN (20:56)
[2018-03-12] MEDS: LORazepam 1 MG TAB PO PRN ×2 (01:59→20:44)
[2018-03-12] MEDS: NICOTINE 14MG/24HR PATCH TRANSDERM SCH (08:00)
--- NOTE | 2018-03-12 12:35 | P.PN ---
Progress Note - Text Interval history: The patient is found in the library he follows me to an interview room. He states that his mood is fine. He is very much looking forward to being discharged. He doesn't feel staying here any longer will help him. We reviewed some of his lab results. He does have ongoing hepatitis C and we discussed the need for him to follow up as an outpatient regarding that infection. He reports he did sleep last night appetite stable. He is anticipating a visit with his mother today. He finds himself frustrated that he is on the same unit with the female peer at that he has concern about. He was offered the opportunity to be transferred to another facility but he declined. Mental status exam: The patient is alert he is dressed in his own clothing. He is pleasant cooperative. He is verbose but nonpressured. He is dressed in a T- shirt and sweat pants. He has visible tattoos. Eye contact is appropriate. He reports his mood is improving although he wants to be discharged. He is reporting no suicidal or homicidal ideation intent or plan. He is reporting no auditory or visual hallucinations or any specific delusions. There is no observed evidence of psychosis hypomania or caro. He can be circumstantial at times but no tangential thinking loose associations or flight of ideas observed. Insight and judgment improving. He is oriented to person place and date. Affect is appropriately expresses including appropriate smiling. Plan: The patient will continue on his current psychotropic medication. We will continue to monitor him for safety he is encouraged to participate in the milieu although he describes having discomfort attending groups with the aforementioned female peer. Vital signs reviewed.
[2018-03-12] MEDS: lamoTRIgine 100 MG TAB PO SCH (20:09)
[2018-03-13 04:07] LABS: Herpes simplex I and/or II IgM 1.58 INDEX (<=0.90); Herpes simplex IgG I Ab 36.9 (< or = 0.90); Herpes simplex IgG II Ab 0.09 (< or = 0.90)
[2018-03-13 06:58] VITALS: BP 132/85; PULSE 82; TEMP 97.4
[2018-03-13] MEDS: NICOTINE 14MG/24HR PATCH TRANSDERM SCH (09:04)
--- NOTE | 2018-03-13 09:22 | P.DS ---
Providers Date of admission: 03/06/18 17:53 Attending physician: Yunior Beasley DO Consults: 03/07/18 13:25 Consult Physician Routine Consulting Provider: Oriana Artis Consult Reason/Comments: H &P Do you want consulting provider notified?: Already Contacted 03/09/18 11:16 Consult Physician Routine Consulting Provider: Abdulaziz Almanza Reason/Comments: Increased Liver enzymes Do you want consulting provider notified?: Yes Primary care physician: Stated None - Discharge Diagnosis(es) (1) Bipolar 1 disorder with moderate caro Current Visit: Yes Status: Acute Priority: Low (2) Elevated liver enzymes Current Visit: Yes Status: Acute Priority: Low (3) Hepatitis C antibody positive in blood Current Visit: Yes Status: Acute Priority: Low Plan - Discharge Summary Discharge Rx Participant: Yes Follow up Appointment(s)/Referral(s): Umberto Diamond MD [STAFF PHYSICIAN] - 1-2 days Yocasta Weber PAC [REFERRING] - 04/06/18 9:00 am Discharge Disposition: HOME SELF-CARE
== END 2018-03-13 12:22 | disposition home or self-care (01) | DRG 885 ==
LOC: EC 13:28 → 3MHU 17:53
PROVIDERS: ADMIT Psychiatry & Neurology Psychiatry; ATTEND Psychiatry & Neurology Psychiatry
DX: F31.9 Bipolar disorder, unspecified (principal); R45.851 Suicidal ideations; B19.20 Unspecified viral hepatitis C without hepatic coma; F17.200 Nicotine dependence, unspecified, uncomplicated; F41.9 Anxiety disorder, unspecified; G89.29 Other chronic pain; M54.5 Low back pain; R45.850 Homicidal ideations; Y09 Assault by unspecified means; D17.0 Benign lipomatous neoplasm of skin and subcutaneous tissue of head, face and neck; F12.10 Cannabis abuse, uncomplicated; F11.11 Opioid abuse, in remission; Z65.3 Problems related to other legal circumstances
CPT/HCPCS: 74177; 76536; 76705; 80053; 80306; 81003; 82075; 83520; 84443; 85025; 85027; 85610; 86644; 86645; 86663; 86664; 86665; 86694; 86695; 86696; 86704; 86705; 86706; 86707; 86709; 86803; 87340; 87350; 87390; 87517; 87522; 87902; 99285

== ENCOUNTER → 2018-05-18 | Outpatient (CLI) | payer OTHER ==
[2018-05-18 15:08] LABS: INR 1.1 (<1.2); Prothrombin Time 10.3 sec (9.0-12.0)
[2018-05-19 04:17] LABS: Albumin 4.5 g/dL (3.80-4.90); Albumin/Globulin Ratio 1.8 (1.20-2.10); Bilirubin, Conjugated 0.3 mg/dL (0.20-0.40); Bilirubin,Unconjugated 0.3 mg/dL; Globulin 2.5 g/dL (2.1-3.7); Total Bilirubin 0.6 mg/dL (0.2-1.2)
[2018-05-19 15:04] LABS: Hepatits C Virus RNA Not detected (Not detected); Hepatits C Virus RNA, Quant <12 IU/mL (<12); LOG HCV IU/mL <1.08 (<1.08)
== END | disposition home or self-care (01) ==
LOC: LABWHC1 14:00
PROVIDERS: ATTEND Physician Assistant
DX: R74.8 Abnormal levels of other serum enzymes (principal)
CPT/HCPCS: 36415; 80076; 82565; 85610; 87522

== ENCOUNTER 2019-01-19 15:08 | Inpatient (IN) | payer MEDICAID, OTHER ==
[2019-01-19] MEDS ORDERED: KETOROLAC 60 MG/2 ML VIAL IM STA (16:01)
[2019-01-19 16:02] LABS: Amphetamine Screen,Urine Not Detected (NotDetected); Barbiturate Screen,Urine Not Detected (NotDetected); Benzodiazepines Screen,Urine Not Detected (NotDetected); Cocaine Screen,Urine Not Detected (NotDetected); Methadone Screen, Urine Not Detected (NotDetected); Opiate Screen,Urine Not Detected (NotDetected); Oxycodone Screen, Urine Not Detected (NotDetected); Phencyclidine Screen,Urine Not Detected (NotDetected); Tricyclic Antidepressant,Urine Not Detected (NotDetected); Urn Cannabinoid Scrn Detected (NotDetected)
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
--- NOTE | 2019-01-19 16:50 | XR ---
Spine HISTORY: Pain 3 views of the lumbar spine loss of disc height present L5-S1. Lumbar vertebral bodies show preserved height, alignment, and bone mineralization. IMPRESSION: Loss of disc height may be due to disc desiccation, consider degenerative disc disease.
[2019-01-19] MEDS ORDERED: MAG HYDROX/AL HYDROX/SIMETH 30 ML CUP PO PRN (19:08)
[2019-01-19] MEDS ORDERED: ZIPRASIDONE 20 MG VIAL IM PRN (19:08)
[2019-01-19] MEDS ORDERED: MAGNESIUM HYDROXIDE 2,400 MG/10 ML CUP PO PRN (19:08)
[2019-01-19 20:46] VITALS: BMI 31.4
[2019-01-19] MEDS: ACETAMINOPHEN TAB 325 MG TAB PO PRN (20:56)
[2019-01-19] MEDS: LORazepam 1 MG TAB PO PRN (20:56)
[2019-01-20 07:40] LABS: Basophils # (A) 0.1 k/uL (0-0.2); Basophils % (A) 1 %; Eosinophils # (A) 0.2 k/uL (0-0.7); Eosinophils % (A) 3 %; HCT 46.4 % (39.0-53.0); HGB 15.3 gm/dL (13.0-17.5); Lymphocytes % (A) 26 %; MCH 28.6 pg (25.0-35.0); MCV 86.8 fL (80.0-100.0); Mean Platelet Volume 7.4; Monocytes # (A) 0.6 k/uL (0-1.0); Monocytes % (A) 8 %; Neutrophils # (A) 4.7 k/uL (1.3-7.7); Neutrophils % (A) 60 %; Platelet Count 222 k/uL (150-450); RBC 5.35 m/uL (4.30-5.90); RDW 14.8 % (11.5-15.5); WBC 7.8 k/uL (3.8-10.6)
[2019-01-20 07:46] LABS: ALT 124 U/L (21-72); AST 68 U/L (17-59); African American GFR (CKD) >90 (>60 ml/min/1.73 sqM); Albumin 4.2 g/dL (3.5-5.0); Alkaline Phosphatase 88 U/L (38-126); Anion Gap 8 mmol/L; Blood Urea Nitrogen 16 mg/dL (9-20); Calcium 9.5 mg/dL (8.4-10.2); Carbon Dioxide 27 mmol/L (22-30); Chloride 104 mmol/L (98-107); Cholesterol 129 mg/dL (<200); Glucose 95 mg/dL (74-99); HDL Cholesterol 46 mg/dL (40-60); LDL Cholesterol,Calculated 72 mg/dL (0-99); Potassium 4.6 mmol/L (3.5-5.1); Sodium 139 mmol/L (137-145); Total Bilirubin 0.7 mg/dL (0.2-1.3); Total Protein 7.3 g/dL (6.3-8.2); Triglycerides 57 mg/dL (<150)
[2019-01-20] MEDS: NICOTINE 21MG/24HR PATCH TRANSDERM SCH (08:40)
[2019-01-20] MEDS: ACETAMINOPHEN TAB 325 MG TAB PO PRN ×2 (08:40→16:25)
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
[2019-01-20 14:25] LABS: Hemoglobin A1C 5.3 % (4.0-6.0)
[2019-01-20] MEDS: NAPROXEN 250 MG TAB PO PRN (15:34)
[2019-01-20] MEDS: lamoTRIgine 25 MG TAB PO SCH (20:46)
[2019-01-21] MEDS: LORazepam 1 MG TAB PO PRN ×2 (00:37→20:54)
[2019-01-21] MEDS: NICOTINE 21MG/24HR PATCH TRANSDERM SCH (09:21)
[2019-01-21] MEDS: lamoTRIgine 25 MG TAB PO SCH ×2 (09:21→20:53)
[2019-01-21] MEDS: ACETAMINOPHEN TAB 325 MG TAB PO PRN ×2 (09:23→20:55)
[2019-01-21] MEDS: NAPROXEN 250 MG TAB PO PRN ×2 (09:25→20:53)
[2019-01-21 17:21] LABS: Appearance,Urine Cloudy (Clear); Bilirubin,Urine Negative (Negative); Blood,Urine Negative (Negative); Budding Yeast,Urine Many /hpf; Color,Urine Yellow; Glucose,Urine (UA) Negative (Negative); Ketones,Urine Negative (Negative); Leukocyte Esterase,Urine Negative (Negative); Nitrite,Urine Negative (Negative); Protein,Urine Negative (Negative); Urobilinogen,Urine <2.0 mg/dL (<2.0)
--- NOTE | 2019-01-21 17:50 | P.PN ---
Progress Note - Text Interval history: The patient is found in the hallway follows me to an interview room. He states that he called CPS on his girlfriend as he found out she relapsed on illicit drugs with the children in the home. He states that they are all now at [facility] for treatment. He states that's he is doing well with the Lamictal. He is reporting no side effects from medication including skin rash. He is eating adequately. He's been attending some groups. Staff recorded he slept 4 hours last night. He indicates he is hoping to be dis charged soon. Mental status exam: The patient is a stocky male appearing his stated age. Eye contacts appropriate speech is fluent spontaneous nonpressured. He reports his mood is good he denies having any suicidal or homicidal ideation intent or plan. He is reporting no auditory or visual hallucinations or any specific delusions. Thought process is linear he can be circumstantial at times. Insight and judgment grossly intact. He remains oriented to person place and date. He demonstrates no verbal or physical aggressiveness. Plan: Resolving suicidal ideation. The patient will continue on Lamictal we will titrate the dose further while hospitalized. He informs me that he has signed a notice to withdrawal his voluntary status. We will continue to monitor him for safety and encourage participation in the milieu. Vital signs reviewed.
[2019-01-22] MEDS: NICOTINE 21MG/24HR PATCH TRANSDERM SCH (08:16)
[2019-01-22] MEDS: lamoTRIgine 25 MG TAB PO SCH ×2 (08:16→20:27)
[2019-01-22 09:56] LABS: Urine Alcohol Negative (Negative); Urine Barbiturate Negative (Negative); Urine Cocaine Negative (Negative); Urine Methadone Negative (Negative); Urine Opiates Negative (Negative); Urine Phencyclidine Negative (Negative)
[2019-01-22] MEDS: ACETAMINOPHEN TAB 325 MG TAB PO PRN ×2 (10:22→20:28)
[2019-01-22] MEDS: NAPROXEN 250 MG TAB PO PRN ×2 (10:22→20:27)
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
[2019-01-22] MEDS: LORazepam 1 MG TAB PO PRN (20:26)
[2019-01-23] MEDS: lamoTRIgine 25 MG TAB PO SCH ×2 (08:02→21:07)
[2019-01-23] MEDS: NICOTINE 21MG/24HR PATCH TRANSDERM SCH (08:02)
[2019-01-23] MEDS: NAPROXEN 250 MG TAB PO PRN ×2 (08:03→21:11)
--- NOTE | 2019-01-23 12:43 | P.PN ---
Progress Note - Text Progress Note Date: 01/23/19 Interval History: Patient was seen this morning wandering the hallways and was agreeable to speak. Patient states that she is gradually improving in terms of his aggression and his mood. He claims that he feels more stable on medications and when he is away from his stressors. He states that he is still trying to follow-up with a CPS report and contact his girlfriend and children at [facility] however is not able to get through to them. Patient states that he is not having a rash or any kind of reaction to the medications. Patient states that he would like to move to [facility] here on within the next few months as he is not able to have any kind of transportation in [place] which is troublesome for him as he cannot work. He states that he is sleeping well throughout the night and denies any problems with appetite. At this time patient denies any suicidal or homical ideations, intent or plan. Patient denies any auditory, visual hallucinations and denies any paranoia or delusions. Patient denies any side effects from the medications and has been compliant with meds. Mental Status Exam: General Appearance: Patient appears to be stated age is alert, pleasant, and cooperative. Patient was in hospital gown and had marginal hygiene and grooming. Behavior: Patient is calmly seated without any agitated behavior. Speech: Patient's speech is fluent and nonpressured. Mood/Affect: Patient reports their mood is improving, affect is congruent and constricted. Suicidality/Homicidality: Patient denies having any suicidal or homicidal ideation intent or plan. Perceptions: Patient denies any auditory or visual hallucinations. Though content/process: There is no evidence of any delusional thought content and thought process is linear and goal-directed. Patient is preoccupied with finances Memory and concentration: AOX3, grossly intact for the purposes of this session Judgment and insight: Superficial insight poor judgment Assessment Bipolar disorder, depressed rule out substance-induced mood disorder. Cannabis use disorder Plan: -Patient continues to meet criteria for inpatient psychiatric admission for symptom stabilization and safety. Patient has signed a voluntary form and would like to stay in the hospital to receive treatment. -Medications: Continue Lamictal to 25 mg daily at bedtime + 50 mg daily for mood stabilization and aggression. Patient does not demonstrate a rash at this time and will continue to monitor daily. Would like to increase to 100 mg total daily prior to patient being discharged. -When necessary Tiffanie and Shirley for agitation/aggression. -SW on board for discharge planning. At this time patient does not have a clear discharge plan however does have a house that he is renting and owes money to his landlord. Patient does not need to return back to residential at this time or after discharge.
[2019-01-23] MEDS: ACETAMINOPHEN TAB 325 MG TAB PO PRN (21:08)
[2019-01-23] MEDS: LORazepam 1 MG TAB PO PRN (21:11)
[2019-01-24] MEDS: NICOTINE 21MG/24HR PATCH TRANSDERM SCH (08:20)
[2019-01-24] MEDS: lamoTRIgine 25 MG TAB PO SCH ×2 (08:20→20:18)
[2019-01-24] MEDS: NAPROXEN 250 MG TAB PO PRN ×2 (08:20→20:21)
[2019-01-24] MEDS: ACETAMINOPHEN TAB 325 MG TAB PO PRN ×3 (08:21→20:20)
--- NOTE | 2019-01-24 11:41 | P.PN ---
Progress Note - Text Progress Note Date: 01/24/19 Interval History: Patient was seen today and was agreeable to speak to medical underwriter in the office. Bronson maloney states that his aggressiveness and mood are gradually improving. He states that he is getting along well with others on the unit and trying to attend groups and "get something out of it". Patient states that he is trying to work on his living arrangement and following up with CPS case which she filed against his girlfriend. Patient denies any rash and showed right or his arms and legs and no rash was visible upon examination. Patient states that he is having some sciatica hip pain and is finding it difficult to walk at this time however states that this is chronic and usually subsides. At this time patient denies any suicidal or homical ideations, intent or plan. Patient denies any auditory, visual hallucinations and denies any paranoia or delusions. Patient denies any side effects from the medications and has been compliant with meds. Patient did sign an AMA form yesterday however claims that he would like to rescind it now. Mental Status Exam: General Appearance: Patient appears to be stated age is alert, pleasant, and cooperative. Patient was in hospital gown and had marginal hygiene and grooming. Behavior: Patient is calmly seated without any agitated behavior. Speech: Patient's speech is fluent and nonpressured. Mood/Affect: Patient reports their mood is improving, affect is congruent and constricted. Suicidality/Homicidality: Patient denies having any suicidal or homicidal ideation intent or plan. Perceptions: Patient denies any auditory or visual hallucinations. Though content/process: There is no evidence of any delusional thought content and thought process is linear and goal-directed. Memory and concentration: AOX3, grossly intact for the purposes of this session Judgment and insight: Superficial insight poor judgment Assessment Bipolar disorder, depressed rule out substance-induced mood disorder. Cannabis use disorder Plan: -Patient continues to meet criteria for inpatient psychiatric admission for symptom stabilization and safety. Patient today has rescinded his AMA form as he is willing to continue in treatment. -Medications: Increase Lamictal to 50 mg daily twice a day for mood stabilization and aggression. Patient does not demonstrate a rash at this time and will continue to monitor daily. -When necessary Ativan and Geodon for agitation/aggression. -SW on board for discharge planning. At this time patient does not have a clear discharge plan however does have a house that he is renting and owes money to his landlord. Patient does not need to return back to custodial at this time or after discharge. Likely discharge date Tuesday.
[2019-01-24] MEDS: ARIPiprazole IM 400 MG VIAL (NO COST) IM ONE ×2 (12:31→13:14)
[2019-01-24] MEDS: LORazepam 1 MG TAB PO PRN (20:22)
[2019-01-25] MEDS: ACETAMINOPHEN TAB 325 MG TAB PO PRN ×4 (00:45→20:50)
[2019-01-25 06:41] VITALS: RESP 18
[2019-01-25] MEDS: lamoTRIgine 25 MG TAB PO SCH ×2 (08:15→20:47)
[2019-01-25] MEDS: NICOTINE 21MG/24HR PATCH TRANSDERM SCH (08:15)
[2019-01-25] MEDS: NAPROXEN 250 MG TAB PO PRN ×3 (08:16→20:52)
--- NOTE | 2019-01-25 11:01 | P.PN ---
Progress Note - Text Progress Note Date: 01/25/19 Interval History: Patient was seen in his room this morning and was agreeable to seek to hand sign writer. Patient appeared to continue to be in some pain from his sciatica however states that it is mildly improving. He claims that he goes to an outside chiropractor which really helps him with this. Patient claims that he is tolerating his much the Lamictal well and claims that is helping him with his aggressiveness, impulsivity and his mood. He states that being in the hospital is helping him stay calmer and allowing him to sort out things on the outside which she has to get back to. He spoke of tomorrow going to clean up his house as CPS workers are going to do a home evaluation He denies any rashes at this time and shows hand sign writer's arms and legs which were briefly examined.At this time patient denies any suicidal or homical ideations, intent or plan. Patient denies any auditory, visual hallucinations and denies any paranoia or delusions. Patient denies any side effects from the medications and has been compliant with meds. Mental Status Exam: General Appearance: Patient appears to be stated age is alert, pleasant, and cooperative. Patient was in hospital gown and had marginal hygiene and grooming. Behavior: Patient is calmly seated without any agitated behavior. Speech: Patient's speech is fluent and nonpressured. Mood/Affect: Patient reports their mood is improving, affect is congruent and constricted. Suicidality/Homicidality: Patient denies having any suicidal or homicidal ideation intent or plan. Perceptions: Patient denies any auditory or visual hallucinations. Though content/process: There is no evidence of any delusional thought content and thought process is linear and goal-directed. Memory and concentration: AOX3, grossly intact for the purposes of this session Judgment and insight: Improving Assessment Bipolar disorder, depressed rule Cannabis use disorder Plan: -Patient continues to meet criteria for inpatient psychiatric admission for symptom stabilization and safety. Patient continues to be under voluntary status for admission. -Medications: Continue with Lamictal to 50 mg daily twice a day for mood stabilization and aggression. Patient does not demonstrate a rash at this time and will continue to monitor daily. -When necessary Ativan and Geodon for agitation/aggression. -SW on board for discharge planning. Likely discharge date Tuesday. Patient plans to head back home after discharge to clean his place in preparatio n for CPS selling manager's to do home inspection. Patient states that he can get act up from a friend or take a bus home.
[2019-01-25] MEDS: LORazepam 1 MG TAB PO PRN (20:50)
[2019-01-26 06:54] VITALS: BP 92/54; PULSE 59; TEMP 97.5
[2019-01-26] MEDS: NICOTINE 21MG/24HR PATCH TRANSDERM SCH (08:50)
[2019-01-26] MEDS: lamoTRIgine 25 MG TAB PO SCH (08:50)
[2019-01-26] MEDS: NAPROXEN 250 MG TAB PO PRN (08:51)
[2019-01-26] MEDS: ACETAMINOPHEN TAB 325 MG TAB PO PRN (08:52)
--- NOTE | 2019-01-26 09:00 | P.DS ---
Providers Date of admission: 01/19/19 19:05 Expected date of discharge: 01/26/19 Attending physician: Ehsan Montilla MD Consults: 01/19/19 19:08 Consult Physician Routine Consulting Provider: Oriana Artis Consult Reason/Comments: medical management Do you want consulting provider notified?: Yes Primary care physician: Stated None - Discharge Diagnosis(es) (1) Bipolar 1 disorder, depressed Current Visit: Yes Status: Acute Priority: High (2) Cannabis abuse Current Visit: Yes Status: Acute Hospital Course: Summary of admission note: Patient is a 33-year-old single male who was admitted to the mental health unit with suicidal ideation. The patient was admitted from the group home. He apparently had a verbal altercation with his mother in the evening. She had called the police and after their evaluation he was arrested for domestic violence. He was brought to the group home. He was seen by clinician in the group home and he was petitioned to go to the hospital for evaluation. He states he has been increasingly depressed and overwhelmed. He reports hopelessness thinking. He states he wanted to "just give up". He has been feeling overwhelmed with financial burden. He had argued with his mother over money. He felt that she was helping his sibling more than him and his sibling did not need help. He described having significant difficulty with sleep and energy have been "way low". Appetite had been fluctuating. He endorses no tearfulness or crying spells. He feels more anxious due to his psychosocial stressors. He reports history of infrequent panic attacks. In terms of manic episodes he states that he will frequently have times where he has unexplained energy he will recklessly spending money he will be irritable and angry and his sleep will be decreased. These episodes don't last for more than 1-2 days however but they occur frequently. He indicates that when he was here last he was given Lamictal at 100 mg and once it had time to work these symptoms appeared to be improved. He reported no side effects with the Lamictal. He reports no auditory or visual hallucinations or any specific delusions. He reports no ownership or immediate access to firearms. Hospital course: Upon admission to the unit patient was initially irritable, depressed affect however was directable. Patient got along well with other patients on the unit and followed unit protocol. Patient was compliant with his medications and denied any side effects throughout his hospital course. Patient was checked routinely for any rashes or any medical problems associated with his m edications. Patient was started on Lamictal and increase to 50 mg twice a day for mood stabilization and aggression/irritability. Patient spoke of his stressors and engaged in therapy both group and individual. Patient was also seen by medical team for history and physical exam, of note patient had elevated LFTs on initial blood work and claimed that it was due to previously being diagnosed with hepatitis C which he claims he received treatment for in the past. Throughout the course of the hospitalization patient gradually improved with regards to mood, aggression and irritability and became future oriented and hopeful. On the day of discharge patient denied any suicidal or homicidal ideations intent or plan denied any auditory or visual hallucinations. He states he slept better and has a good appetite. Patient denied any paranoia and did not endorse any delusions. Patient does have a significant history for cannabis abuse and was counseled on abstaining from this and discussed with him the implications on his physical and mental health. Patient was also counseled on the medications and need for regular compliance and was encouraged to follow- up with their outpatient appointment for mental health and also for primary care. Mental status exam: General Appearance: Patient appears to be stated age is alert, pleasant, and cooperative. Patient is in no acute distress and has fair hygiene and grooming Behavior: Patient is calmly seated without any agitated behavior. Speech: Patient's speech is fluent and nonpressured. Mood/Affect: Patient reports their mood is good, affect is congruent and euthymic. Suicidality/Homicidality: Patient denies having any suicidal or homicidal ideation intent or plan. Perceptions: Patient denies any auditory or visual hallucinations. Though content/process: There is no evidence of any delusional thought content and thought process is linear and goal-directed. Memory and concentration: AOX3, grossly intact for the purposes of this session. Can spell "WORLD" backwards correctly. Judgment and insight: fair, improved Impression: Bipolar disorder, depressed Cannabis use disorder Plan: -Continue with discharge today as patient has improved and stabilized psychiatrically and no longer remains an imminent threat to himself and/or others. -Continue medications: Continue with Lamictal 100 mg a day total dose for mood stabilization and aggression/irritability. Patient was advised and warned about the potential side effect of a rash which may develop and to continue to monitor for it. Patient was advised to seek urgent medical medical attention if this occurs -Patient was counseled on the need for medication compliance and appropriate follow-up at mental health and also primary care for medical issues. Patient verbalized understanding and agreed. -Social work to give patient resources for substance use. Patient also requested assistance with transportation home. -Patient called CPS on his girlfriend, patient followed up with CPS who claims that they will do a home visit this week and further investigation. -Patient counseled on abstaining from recreational drugs and marijuana and alcohol. Discussed the implications of these recreational drugs on his physical and mental health. Patient verbally agreed and understood. -Patient was instructed to return to the hospital or seek immediate medical care if their psychiatric or medical systems do worsen or reoccur. Allergies Allergy/AdvReac Type Severity Reaction Status Date / Time No Known Allergies Allergy Verified 01/19/19 19:36 Laboratory Results WBC 7.8 k/uL (3.8-10.6) 01/20/19 06:57 RBC 5.35 m/uL (4.30-5.90) 01/20/19 06:57 Hgb 15.3 gm/dL (13.0-17.5) 01/20/19 06:57 Hct 46.4 % (39.0-53.0) 01/20/19 06:57 MCV 86.8 fL (80.0-100.0) 01/20/19 06:57 MCH 28.6 pg (25.0-35.0) 01/20/19 06:57 MCHC 33.0 g/dL (31.0-37.0) 01/20/19 06:57 RDW 14.8 % (11.5-15.5) 01/20/19 06:57 Plt Count 222 k/uL (150-450) 01/20/19 06:57 Neutrophils % 60 % 01/20/19 06:57 Lymphocytes % 26 % 01/20/19 06:57 Monocytes % 8 % 01/20/19 06:57 Eosinophils % 3 % 01/20/19 06:57 Basophils % 1 % 01/20/19 06:57 Neutrophils # 4.7 k/uL (1.3-7.7) 01/20/19 06:57 Lymphocytes # 2.0 k/uL (1.0-4.8) 01/20/19 06:57 Monocytes # 0.6 k/uL (0-1.0) 01/20/19 06:57 Eosinophils # 0.2 k/uL (0-0.7) 01/20/19 06:57 Basophils # 0.1 k/uL (0-0.2) 01/20/19 06:57 Sodium 139 mmol/L (137-145) 01/20/19 06:57 Potassium 4.6 mmol/L (3.5-5.1) 01/20/19 06:57 Chloride 104 mmol/L (98-107) 01/20/19 06:57 Carbon Dioxide 27 mmol/L (22-30) 01/20/19 06:57 Anion Gap 8 mmol/L 01/20/19 06:57 BUN 16 mg/dL (9-20) 01/20/19 06:57 Creatinine 0.93 mg/dL (0.66-1.25) 01/20/19 06:57 Est GFR (CKD-EPI)AfAm >90 (>60 ml/min/1.73 sqM) 01/20/19 06:57 Est GFR (CKD-EPI)NonAf >90 (>60 ml/min/1.73 sqM) 01/20/19 06:57 Glucose 95 mg/dL (74-99) 01/20/19 06:[address] Glu mg/dL 105 01/20/19 06:57 Hemoglobin A1c 5.3 % (4.0-6.0) 01/20/19 06:57 Calcium 9.5 mg/dL (8.4-10.2) 01/20/19 06:57 Total Bilirubin 0.7 mg/dL (0.2-1.3) 01/20/19 06:57 AST 68 U/L (17-59) H 01/20/19 06:57 ALT 124 U/L (21-72) H 01/20/19 06:57 Alkaline Phosphatase 88 U/L (38-126) 01/20/19 06:57 Total Protein 7.3 g/dL (6.3-8.2) 01/20/19 06:57 Albumin 4.2 g/dL (3.5-5.0) 01/20/19 06:57 Triglycerides 57 mg/dL (<150) 01/20/19 06:57 Cholesterol 129 mg/dL (<200) 01/20/19 06:57 LDL Cholesterol, Calc 72 mg/dL (0-99) 01/20/19 06:57 HDL Cholesterol 46 mg/dL (40-60) 01/20/19 06:57 TSH 0.522 mIU/L (0.465-4.680) 01/20/19 06:57 Urine Color Yellow 01/21/19 17:01 Urine Appearance Cloudy (Clear) 01/21/19 17:01 Urine pH 7.0 (5.0-8.0) 01/21/19 17:01 Ur Specific [place] 1.020 (1.001-1.035) 01/21/19 17:01 Urine Protein Negative (Negative) 01/21/19 17:01 Urine Glucose (UA) Negative (Negative) 01/21/19 17:01 Urine Ketones Negative (Negative) 01/21/19 17:01 Urine Blood Negative (Negative) 01/21/19 17:01 Urine Nitrite Negative (Negative) 01/21/19 17:01 Urine Bilirubin Negative (Negative) 01/21/19 17:01 Urine Urobilinogen <2.0 mg/dL (<2.0) 01/21/19 17:01 Ur Leukocyte Esterase Negative (Negative) 01/21/19 17:01 Urine Yeast (Budding) Many /hpf (None) H 01/21/19 17:01 Urine Opiates Screen Negative ng/mL (Negative) 01/21/19 17:01 Ur Oxycodone Screen Not Detected (NotDetected) 01/19/19 15:45 Urine Methadone Screen Negative ng/mL (Negative) 01/21/19 17:01 Ur Propoxyphene Screen Negative ng/mL (Negative) 01/21/19 17:01 Ur Barbiturates Screen Not Detected (NotDetected) 01/19/19 15:45 Urine Barbiturates Negative ng/mL (Negative) 01/21/19 17:01 Valproic Acid <10.0 ug/mL 01/25/19 09:21 U Tricyclic Antidepress Not Detected (NotDetected) 01/19/19 15:45 Ur Phencyclidine Scrn Negative ng/mL (Negative) 01/21/19 17:01 Ur Amphetamine Screen Negative ng/mL (Negative) 01/21/19 17:01 Ur Amphetamines Screen Not Detected (NotDetected) 01/19/19 15:45 U Methamphetamines Scrn Not Detected (NotDetected) 01/19/19 15:45 U Benzodiazepines Scrn Negative ng/mL (Negative) 01/21/19 17:01 Urine Cocaine Screen Negative ng/mL (Negative) 01/21/19 17:01 U Cannabinoids Screen Positive ng/mL (Negative) H 01/21/19 17:01 U Marijuana (THC) Screen Detected (NotDetected) H 01/19/19 15:45 Urine Alcohol Negative mg/dL (Negative) 01/21/19 17:01 Vital Signs Temp 97.5 F L 01/26/19 06:54 Pulse 59 L 01/26/19 06:54 Resp 18 01/26/19 06:54 BP 92/54 01/26/19 06:54 Pulse Ox 97 01/19/19 19:35 Patient Condition at Discharge: Stable Plan - Discharge Summary Discharge Rx Participant: No New Discharge Prescriptions: New lamoTRIgine [LaMICtal] 100 mg PO DAILY #28 tab Naproxen [Naprosyn] 250 mg PO BID PRN tab PRN Reason: Pain Discharge Medication List Naproxen [Naprosyn] 250 mg PO BID PRN tab 01/26/19 [Rx] lamoTRIgine [LaMICtal] 100 mg PO DAILY #28 tab 01/26/19 [Rx] Follow up Appointment(s)/Referral(s): None,Stated [Primary Care Provider] - 1-2 days Discharge Disposition: HOME SELF-CARE
== END 2019-01-26 13:28 | disposition home or self-care (01) | DRG 885 ==
LOC: EC 15:08 → 3MHU 19:05
PROVIDERS: ADMIT Psychiatry & Neurology Psychiatry; ATTEND Psychiatry & Neurology Psychiatry
DX: F31.30 Bipolar disorder, current episode depressed, mild or moderate severity, unspecified (principal); R45.851 Suicidal ideations; F12.10 Cannabis abuse, uncomplicated; F17.210 Nicotine dependence, cigarettes, uncomplicated; F41.0 Panic disorder [episodic paroxysmal anxiety]; F90.9 Attention-deficit hyperactivity disorder, unspecified type; M54.30 Sciatica, unspecified side; Z62.810 Personal history of physical and sexual abuse in childhood; Z79.899 Other long term (current) drug therapy; Z91.5 Personal history of self-harm; B18.2 Chronic viral hepatitis C; M47.9 Spondylosis, unspecified
CPT/HCPCS: 72100; 80053; 80061; 80164; 80306; 81001; 82075; 83036; 84443; 85025; 96372; 99285

== ENCOUNTER 2019-03-14 12:06 | Emergency (ER) | payer OTHER ==
[2019-03-14 12:39] VITALS: BP 115/73; PULSE 75; RESP 16; TEMP 98.4
--- NOTE | 2019-03-14 14:00 | ED ---
Eye Problem HPI - General Chief complaint: Eye Problems Stated complaint: FB Rt eye Time Seen by Provider: 03/14/19 13:45 Source: patient Mode of arrival: ambulatory Limitations: no limitations - History of Present Illness Initial comments: Patient is a 34-year-old male presenting to the emergency Department with complaints of right eye irritation 3 days. 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 Patient denies wearing contacts. Patient states he's been trying to flush his eye out as well as uses finger to "scratch"his eye. Patient states the redness has been increasing. Patient is having clear discharge from the eye. Patient denies fever, chills. No other complaints at this time. Upon arrival to ER, vital signs are stable. - Related Data Previous Rx's Medication Instructions Recorded Naproxen [Naprosyn] 250 mg PO BID PRN tab 01/26/19 lamoTRIgine [LaMICtal] 100 mg PO DAILY #28 tab 01/26/19 Erythromycin Ophth Oint [Romycin 1 applic RIGHT EYE QID 5 Days #1 03/14/19 Ophth Oint] tube Allergies Allergy/AdvReac Type Severity Reaction Status Date / Time No Known Allergies Allergy Verified 03/14/19 12:39 Review of Systems ROS Statement: Those systems with pertinent positive or pertinent negative responses have been documented in the HPI. ROS Other: All systems not noted in ROS Statement are negative. Past Medical History Additional Past Medical History / Comment(s): Hepatitic C, History of Any Multi-Drug Resistant Organisms: None Reported Past Surgical History: No Surgical Hx Reported Past Psychological History: Anxiety, Bipolar Smoking Status: Current some day smoker Past Alcohol Use History: None Reported Past Drug Use History: None Reported, Marijuana General Exam - General Exam Comments Initial Comments: GENERAL: Well-appearing, well-nourished and in no acute distress. HEAD: Atraumatic, normocephalic. EYES: Pupils equal round and reactive to light, extraocular movements intact, right sclera injected, clear drainage, conjunctiva are normal. No foreign objects seen. Under fluorescent light, 2 small abrasions on the lateral aspect of the right eye. ENT: TMs normal, nares patent, oropharynx clear without exudates. Moist mucous membranes. NECK: Normal range of motion, supple without lymphadenopathy or JVD. LUNGS: Breath sounds clear to auscultation bilaterally and equal. No wheezes rales or rhonchi. HEART: Regular rate and rhythm without murmurs, rubs or gallops. ABDOMEN: Soft, nontender, normoactive bowel sounds. No guarding, no rebound. No masses appreciated. : Deferred EXTREMITIES: Normal range of motion, no pitting or edema. No clubbing or cyanosis. NEUROLOGICAL: Cranial nerves II through XII grossly intact. Normal speech, normal gait. PSYCH: Normal mood, normal affect. SKIN: Warm, Dry, normal turgor, no rashes or lesions noted. Limitations: no limitations Course Vital Signs 03/14/19 12:35 Temperature 98.4 F Pulse Rate 75 Respiratory 16 Rate Blood Pressure 115/73 O2 Sat by Pulse 98 Oximetry Medical Decision Making - Medical Decision Making Patient is a 34-year-old male presenting with right eye irritation 3 days. Patient states he may have a foreign object in his eye. On exam there is no foreign body seen. Under fluorescent light there is 2 small abrasions to the right side, lateral aspect. No ulcers seen. Patient will be started on erythromycin ointment to use 4 times daily. Patient will follow up with eye doctor if symptoms persist. Return parameters were discussed with the patient he verbalizes understanding. Patient is stable for discharge at this time. Disposition Clinical Impression: Right corneal abrasion Disposition: HOME SELF-CARE Condition: Stable Instructions (If sedation given, give patient instructions): Corneal Abrasion (ED) Additional Instructions: Please return to the Emergency Department if symptoms worsen or any other concerns. Use eye antibiotic ointment as discussed. Follow-up with ophthalmology if symptoms persist. Prescriptions: Erythromycin Ophth Oint [Romycin Ophth Oint] 1 applic RIGHT EYE QID 5 Days #1 tube Is patient prescribed a controlled substance at d/c from ED?: No Referrals: None,Stated [Primary Care Provider] - 1-2 days
[2019-03-14] MEDS ORDERED: PROPARACAINE 0.5% OPHTH DROPS 15 ML BTL RIGHT EYE STA (14:01)
== END 2019-03-14 14:00 | disposition home or self-care (01) ==
LOC: EC 12:06
DX: S05.01XA Injury of conjunctiva and corneal abrasion without foreign body, right eye, initial encounter (principal); F17.200 Nicotine dependence, unspecified, uncomplicated; X58.XXXA Exposure to other specified factors, initial encounter
CPT/HCPCS: 99283

== ENCOUNTER 2019-04-02 05:51 | Emergency (ER) | payer OTHER ==
[2019-04-02 05:58] VITALS: BP 133/95; PULSE 71; RESP 20; TEMP 97.4
[2019-04-02] MEDS ORDERED: SODIUM CHLORIDE 0.9% 1,000 ML IV STA (05:59)
[2019-04-02] MEDS ORDERED: KETOROLAC 30 MG/ML 1 ML VIAL IVP STA (06:09)
[2019-04-02] MEDS ORDERED: diphenhydrAMINE 50 MG/ML 1 ML VIAL IVP STA (06:09)
[2019-04-02] MEDS ORDERED: METOCLOPRAMIDE 5 MG/ML 2 ML VIAL IVP STA (06:10)
--- NOTE | 2019-04-02 06:20 | ED ---
General Adult HPI - General Source: patient, RN notes reviewed Mode of arrival: ambulatory Limitations: no limitations <Vinay Darnell - Last Filed: 04/02/19 07:06> <Grace Lou - Last Filed: 04/02/19 07:32> - General Chief complaint: Headache Stated complaint: Headache; visual disturbance Time Seen by Provider: 04/02/19 06:02 - History of Present Illness Initial comments: This a 34-year-old male presents emergency Department with multiple complaints primarily complains of a headache. Patient states that his headache has been present for the last 2 days. Patient states that it is a diffuse headache and which she has had a headache like this in the past. Patient states that onset. Patient is medically has some photophobia with no blurred vision or double vision. Patient denies any recent fevers, chills, neck pain or neck stiffness. Patient is not taking any for his headache at this time. Patient does admit that she had a CAT scan a past for headaches. Patient also complains that he's had a cough, nonproductive which has been worsening over the last 1 week. Patient does admit that he is a daily smoker. Patient denies any nasal congestion, sore throat. Patient states he does not want abdominal pain including nausea vomiting diarrhea constipation. Patient also complains of some low back pain which is chronic in nature forearm denies any acute injuries denies any bowel bladder incontinence or retention. (Vinay Darnell) - Related Data Previous Rx's Medication Instructions Recorded Naproxen [Naprosyn] 250 mg PO BID PRN tab 01/26/19 lamoTRIgine [LaMICtal] 100 mg PO DAILY #28 tab 01/26/19 Erythromycin Ophth Oint [Romycin 1 applic RIGHT EYE QID 5 Days #1 03/14/19 Ophth Oint] tube Ibuprofen [Motrin] 600 mg PO Q8HR PRN #30 tab 04/02/19 Allergies Allergy/AdvReac Type Severity Reaction Status Date / Time No Known Allergies Allergy Verified 04/02/19 05:58 Review of Systems ROS Other: All systems not noted in ROS Statement are negative. <Vinay Darnell - Last Filed: 04/02/19 07:06> ROS Other: All systems not noted in ROS Statement are negative. <Grace Lou - Last Filed: 04/02/19 07:32> ROS Statement: Those systems with pertinent positive or pertinent negative responses have been documented in the HPI. Past Medical History Additional Past Medical History / Comment(s): Hepatitic C, History of Any Multi-Drug Resistant Organisms: None Reported Past Surgical History: No Surgical Hx Reported Past Psychological History: Anxiety, Bipolar Smoking Status: Current every day smoker Past Alcohol Use History: None Reported Past Drug Use History: Marijuana <Vinay Darnell - Last Filed: 04/02/19 07:06> General Exam Limitations: no limitations General appearance: alert, in no apparent distress Head exam: Present: atraumatic, normocephalic, normal inspection Eye exam: Present: normal appearance, PERRL, EOMI. Absent: scleral icterus, conjunctival injection, periorbital swelling ENT exam: Present: normal exam, normal oropharynx, mucous membranes moist, TM's normal bilaterally, normal external ear exam Neck exam: Present: normal inspection, full ROM. Absent: tenderness, meningismus, lymphadenopathy Respiratory exam: Present: normal lung sounds bilaterally. Absent: respiratory distress, wheezes, rales, rhonchi, stridor Cardiovascular Exam: Present: regular rate, normal rhythm, normal heart sounds. Absent: systolic murmur, diastolic murmur, rubs, gallop, clicks GI/Abdominal exam: Present: soft, normal bowel sounds. Absent: distended, tenderness, guarding, rebound, rigid Back exam: Present: full ROM, tenderness (Minimal left lumbar), paraspinal ten derness. Absent: CVA tenderness (R), CVA tenderness (L), vertebral tenderness Neurological exam: Present: alert, oriented X3, CN II-XII intact, reflexes normal, other (Finger to nose intact bilaterally). Absent: motor sensory deficit Skin exam: Present: warm, dry, intact, normal color. Absent: rash <Vinay Darnell - Last Filed: 04/02/19 07:06> Course <Vinay Darnell - Last Filed: 04/02/19 07:06> Vital Signs 04/02/19 05:55 Temperature 97.4 F L Pulse Rate 71 Respiratory 20 Rate Blood Pressure 133/95 O2 Sat by Pulse 99 Oximetry - Reevaluation(s) Reevaluation #1: 04/02/19 07:06 Patient reevaluated, patient resting comfortably in no distress patient states his headache has resolved. Updated on chest x-ray results. (Vinay Darnell) Medical Decision Making <Vinay Darnell - Last Filed: 04/02/19 07:06> <Grace Lou - Last Filed: 04/02/19 07:32> - Medical Decision Making Physical x-ray obtained which shows no acute abnormality. Patient's improved headache after migraine cocktail. Normal neuro exam. Patient will be discharged at this time stable condition return parameters were discussed. (Vinay Darnell) I was available for consultation in the emergency room. History and physical exam were done by the mid-level provider. I was consulted for the patient's c are. I reviewed the case with the mid-level provider and based on their presentation of the patient, I agree with the assessment, medical decision- making and plan of care as documented. Chart was dictated using [employer] dictation software. Attempts were made to correct any dictation errors however some typographical errors may persist (Grace Lou) Disposition Is patient prescribed a controlled substance at d/c from ED?: No Time of Disposition: 07:07 <Vinay Darnell - Last Filed: 04/02/19 07:06> <Grace Lou - Last Filed: 04/02/19 07:32> Clinical Impression: Migraine, URI (upper respiratory infection), Lumbar radiculopathy, acute Disposition: HOME SELF-CARE Condition: Stable Instructions (If sedation given, give patient instructions): Acute Headache (ED) Additional Instructions: Please return to the Emergency Department if symptoms worsen or any other concerns. Prescriptions: Ibuprofen [Motrin] 600 mg PO Q8HR PRN #30 tab PRN Reason: Pain Referrals: None,Stated [Primary Care Provider] - 1-2 days
--- NOTE | 2019-04-02 06:37 | XR ---
EXAM: XR Chest, 2 Views CLINICAL HISTORY: Cough. TECHNIQUE: Frontal and lateral views of the chest. COMPARISON: 02/24/2017. FINDINGS: Lungs: The lungs are well aerated. No consolidative change. Pleural space: No pleural effusion. No pneumothorax. Heart: Cardiomediastinal silhouettes unremarkable. Mediastinum: See above. Bones/joints: Osseous structures are unremarkable. IMPRESSION: No active disease.
== END 2019-04-02 07:25 | disposition home or self-care (01) ==
LOC: EC 05:51
DX: G43.909 Migraine, unspecified, not intractable, without status migrainosus (principal); J06.9 Acute upper respiratory infection, unspecified; M54.16 Radiculopathy, lumbar region; F17.200 Nicotine dependence, unspecified, uncomplicated
CPT/HCPCS: 71046; 99284; 96374; 96375 ×2; 96361; J1200; J2765; J1885

== ENCOUNTER 2019-11-30 12:16 | Emergency (ER) | payer OTHER ==
[2019-11-30 12:29] VITALS: RESP 18
[2019-11-30] MEDS: LIDOCAINE 1% INJ 10MG/ML (20 ML MDV) SQ ONE ×2 (13:12→14:52)
[2019-11-30 13:17] LABS: Basophils % (A) 0 %; Eosinophils # (A) 0.2 k/uL (0-0.7); Eosinophils % (A) 2 %; HCT 40.3 % (39.0-53.0); HGB 13.9 gm/dL (13.0-17.5); Lymphocytes # (A) 1.7 k/uL (1.0-4.8); Lymphocytes % (A) 17 %; MCH 29.3 pg (25.0-35.0); MCHC 34.5 g/dL (31.0-37.0); MCV 84.9 fL (80.0-100.0); Mean Platelet Volume 7.6; Monocytes # (A) 0.8 k/uL (0-1.0); Monocytes % (A) 8 %; Neutrophils # (A) 7.2 k/uL (1.3-7.7); Neutrophils % (A) 71 %; Platelet Count 227 k/uL (150-450); RBC 4.75 m/uL (4.30-5.90)
[2019-11-30 13:28] LABS: ALT 32 U/L (4-49); AST 32 U/L (17-59); African American GFR (CKD) >90 (>60 ml/min/1.73 sqM); Albumin 3.9 g/dL (3.5-5.0); Alkaline Phosphatase 99 U/L (38-126); Anion Gap 10 mmol/L; Blood Urea Nitrogen 11 mg/dL (9-20); Calcium 8.8 mg/dL (8.4-10.2); Carbon Dioxide 26 mmol/L (22-30); Chloride 104 mmol/L (98-107); Glucose 100 mg/dL (74-99); Non-African American GFR(CKD) >90 (>60 ml/min/1.73 sqM); Potassium 4.2 mmol/L (3.5-5.1); Sodium 140 mmol/L (137-145); Total Bilirubin 0.5 mg/dL (0.2-1.3)
--- NOTE | 2019-11-30 13:35 | ED ---
General Adult HPI - General Chief complaint: Skin/Abscess/Foreign Body Stated complaint: redness on buttocks Time Seen by Provider: 11/30/19 12:37 Source: patient, police, RN notes reviewed Mode of arrival: ambulatory Limitations: no limitations - History of Present Illness Initial comments: 34-year-old male presents to the emergency department for chief complaint of abscess to the right buttocks. Patient states this started 4 days ago. Patient states he has been on doxycycline for 2 days and had incision and drainage 2 days ago. Unsure if puss was expressed from the wound. Patient denies fevers or chills. 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 Patient denies any abdominal pain.Patient has no other complaints at this time including shortness of breath, chest pain, abdominal pain, nausea or vomiting, headache, or visual changes. - Related Data Previous Rx's Medication Instructions Recorded Naproxen [Naprosyn] 250 mg PO BID PRN tab 01/26/19 lamoTRIgine [LaMICtal] 100 mg PO DAILY #28 tab 01/26/19 Erythromycin Ophth Oint [Romycin 1 applic RIGHT EYE QID 5 Days #1 03/14/19 Ophth Oint] tube Ibuprofen [Motrin] 600 mg PO Q8HR PRN #30 tab 04/02/19 Clindamycin [Cleocin] 450 mg PO Q6H 10 Days #120 cap 11/30/19 Allergies Allergy/AdvReac Type Severity Reaction Status Date / Time lamotrigine [From Lamictal] Allergy Rash/Hives Verified 11/30/19 12:29 Review of Systems ROS Statement: Those systems with pertinent positive or pertinent negative responses have been documented in the HPI. ROS Other: All systems not noted in ROS Statement are negative. Past Medical History Past Medical History: No Reported History Additional Past Medical History / Comment(s): Hepatitic C, History of Any Multi-Drug Resistant Organisms: None Reported Past Surgical History: No Surgical Hx Reported Past Psychological History: Anxiety, Bipolar, Depression Smoking Status: Current every day smoker Past Alcohol Use History: None Reported Past Drug Use History: Cocaine, Heroin, Marijuana General Exam Limitations: no limitations General appearance: alert, in no apparent distress Head exam: Present: atraumatic, normocephalic, normal inspection Eye exam: Present: normal appearance, PERRL, EOMI. Absent: scleral icterus, conjunctival injection, periorbital swelling ENT exam: Present: normal exam, mucous membranes moist Neck exam: Present: normal inspection, full ROM. Absent: tenderness, meni ngismus, lymphadenopathy Respiratory exam: Present: normal lung sounds bilaterally. Absent: respiratory distress, wheezes, rales, rhonchi, stridor Cardiovascular Exam: Present: regular rate, normal rhythm, normal heart sounds. Absent: bradycardia, tachycardia, irregular rhythm GI/Abdominal exam: Present: soft, normal bowel sounds. Absent: distended, tenderness, guarding, rebound, rigid Back exam: Present: other (Buttock exam did reveal 10 x 10 cm of erythema with induration present of the right gluteus area) Course Vital Signs 11/30/19 12:25 Temperature 98.0 F Pulse Rate 77 Respiratory 18 Rate Blood Pressure 122/82 O2 Sat by Pulse 100 Oximetry Medical Decision Making - Medical Decision Making Vitals are stable. HPI and physical exam as I came in. A 10 cm x 10 cm area of indurated erythema over the right gluteal. CBC CMP unremarkable. CT pelvis showed diffuse soft tissue edema overlying left gluteal region. No definable abscess cavity, correlate for cellulitis. I do not see an area for incision on physical exam either so this is clinically correlated. Patient will be changed to clindamycin instead of doxycycline. Recommend monitoring the area and retur luis here if it is not improving in the next 24-48 hours. I discussed this case with attending Dr. Hermosillo who agrees with this assessment and treatment plan. - Lab Data Result diagrams: 11/30/19 13:05 11/30/19 13:05 Lab Results 11/30/19 11/30/19 11/30/19 Range/Units 13:05 13:05 13:05 WBC 10.0 (3.8-10.6) k/uL RBC 4.75 (4.30-5.90) m/uL Hgb 13.9 (13.0-17.5) gm/dL Hct 40.3 (39.0-53.0) % MCV 84.9 (80.0-100.0) fL MCH 29.3 (25.0-35.0) pg MCHC 34.5 (31.0-37.0) g/dL RDW 13.0 (11.5-15.5) % Plt Count 227 (150-450) k/uL Neutrophils % 71 % Lymphocytes % 17 % Monocytes % 8 % Eosinophils % 2 % Basophils % 0 % Neutrophils # 7.2 (1.3-7.7) k/uL Lymphocytes # 1.7 (1.0-4.8) k/uL Monocytes # 0.8 (0-1.0) k/uL Eosinophils # 0.2 (0-0.7) k/uL Basophils # 0.0 (0-0.2) k/uL Sodium 140 (137-145) mmol/L Potassium 4.2 (3.5-5.1) mmol/L Chloride 104 (98-107) mmol/L Carbon Dioxide 26 (22-30) mmol/L Anion Gap 10 mmol/L BUN 11 (9-20) mg/dL Creatinine 0.81 (0.66-1.25) mg/dL Est GFR (CKD-EPI)AfAm >90 (>60 ml/min/1.73 sqM) Est GFR (CKD-EPI)NonAf >90 (>60 ml/min/1.73 sqM) Glucose 100 H (74-99) mg/dL Plasma Lactic Acid Kole 1.1 (0.7-2.0) mmol/L Calcium 8.8 (8.4-10.2) mg/dL Total Bilirubin 0.5 (0.2-1.3) mg/dL AST 32 (17-59) U/L ALT 32 (4-49) U/L Alkaline Phosphatase 99 (38-126) U/L Total Protein 7.0 (6.3-8.2) g/dL Albumin 3.9 (3.5-5.0) g/dL Disposition Clinical Impression: Cellulitis Disposition: HOME SELF-CARE Condition: Good Additional Instructions: Please take clindamycin instead of doxycycline. Please monitor area of redness and if it is spreading or not improving in the next 48 hours return to the emergency department. Return for any other worsening symptoms such as fevers. Prescriptions: Clindamycin [Cleocin] 450 mg PO Q6H 10 Days #120 cap Is patient prescribed a controlled substance at d/c from ED?: No Referrals: Danette Veliz MD [REFERRING] - 1-2 days Time of Disposition: 14:42
--- NOTE | 2019-11-30 13:56 | CT ---
EXAMINATION TYPE: CT pelvis w con DATE OF EXAM: 11/30/2019 COMPARISON: 03/07/2018 HISTORY: Abscess right mid buttocks CT DLP: 779 mGycm Automated exposure control for dose reduction was used. CONTRAST: CT scan of the pelvis is performed with IV Contrast, patient injected with 100 mL of Isovue 300. FINDINGS- Visualized portions of the spleen, liver, kidneys and aorta have a normal appearance. Bowel gas patte rn as visualized nonspecific. Osseous structures intact. There is diffuse skin thickening and soft tissue edema involving the posterior subcutaneous gluteal r egions correlate for cellulitis. No definite abscess identified. More localized attenuation in the gusman bcutaneous tissues may represent a small phlegmon. IMPRESSION- 1. Diffuse soft tissue edema overlying the left gluteal region. No definable abscess cavity, correlat e for cellulitis.
[2019-11-30] MEDS ORDERED: cefTRIAXone IN SWFI 1,000 MG/10 ML SYRINGE IVP STA (14:38)
[2019-11-30] MEDS ORDERED: KETOROLAC 30 MG/ML 1 ML VIAL IVP STA (14:47)
[2019-11-30 14:58] VITALS: BP 123/72; PULSE 69; TEMP 98
== END 2019-11-30 15:04 | disposition home or self-care (01) ==
LOC: EC 12:16
DX: L03.317 Cellulitis of buttock (principal); F17.200 Nicotine dependence, unspecified, uncomplicated; Z88.8 Allergy status to other drugs, medicaments and biological substances; Z86.14 Personal history of Methicillin resistant Staphylococcus aureus infection
CPT/HCPCS: 36415; 80053; 83605; 85025; 87040; 72193; 99283; 96374; 96375; J0696; J1885; Q9967

== ENCOUNTER 2019-12-23 11:25 | Emergency (ER) | payer OTHER ==
[2019-12-23 11:41] VITALS: BP 145/106; PULSE 115; RESP 18; TEMP 98.3
--- NOTE | 2019-12-23 12:55 | ED ---
General Adult HPI - General Source: patient, police, RN notes reviewed, old records reviewed Mode of arrival: ambulatory Limitations: no limitations <Twin Ni - Last Filed: 12/23/19 14:59> <Twin Iverson - Last Filed: 12/31/19 14:16> - General Chief complaint: Psychiatric Symptoms Stated complaint: mental health Time Seen by Provider: 12/23/19 11:35 - History of Present Illness Initial comments: This is a 34-year-old male who states he is addicted to crack cocaine. Patient states she did crack last this morning. Patient states he is feeling suicidal and thinks he is going to potentially use heroin to kill himself. Patient states he wants to get off the crack but he is so addicted that is been unable to on his own. Patient states every time he uses feel so ashamed and he is so depressed that he always wants to kill himself. Patient states she made an attempt to kill himself last year with fentanyl. Patient states. Process now is that he might kill himself with heroin. Patient denies any physical complaints today. Patient denies any headache patient denies numbness weakness. Patient denies chest pain difficulty breathing shortness breath. Patient denies any fever chills or cough per patient denies any abdominal pain. (Twin Ni) - Related Data Previous Rx's Medication Instructions Recorded Naproxen [Naprosyn] 250 mg PO BID PRN tab 01/26/19 lamoTRIgine [LaMICtal] 100 mg PO DAILY #28 tab 01/26/19 Erythromycin Ophth Oint [Romycin 1 applic RIGHT EYE QID 5 Days #1 03/14/19 Ophth Oint] tube Ibuprofen [Motrin] 600 mg PO Q8HR PRN #30 tab 04/02/19 Clindamycin [Cleocin] 450 mg PO Q6H 10 Days #120 cap 11/30/19 Allergies Allergy/AdvReac Type Severity Reaction Status Date / Time lamotrigine [From Lamictal] Allergy Rash/Hives Verified 12/23/19 11:40 Review of Systems ROS Other: All systems not noted in ROS Statement are negative. <Twin Ni - Last Filed: 12/23/19 14:59> ROS Other: All systems not noted in ROS Statement are negative. <Twin Iverson - Last Filed: 12/31/19 14:16> ROS Statement: Those systems with pertinent positive or pertinent negative responses have been documented in the HPI. Past Medical History Past Medical History: No Reported History Additional Past Medical History / Comment(s): Hepatitic C, History of Any Multi-Drug Resistant Organisms: None Reported Past Surgical History: No Surgical Hx Reported Past Psychological History: Anxiety, Bipolar, Depression Smoking Status: Current every day smoker Past Alcohol Use History: None Reported Past Drug Use History: Cocaine, Heroin, Marijuana <Twin Ni - Last Filed: 12/23/19 14:59> General Exam Limitations: no limitations <Twin Ni - Last Filed: 12/23/19 14:59> - General Exam Comments Initial Comments: GENERAL: Patient is well-developed and well-nourished. Patient is nontoxic and well- hydrated and is in mild distress. ENT: Neck is soft and supple. No significant lymphadenopathy is noted. Oropharynx is clear. Moist mucous membranes. Neck has full range of motion without eliciting any pain. EYES: The sclera were anicteric and conjunctiva were pink and moist. Extraocular movements were intact and pupils were equal round and reactive to light. Eyelids were unremarkable. PULMONARY: Unlabored respirations. Good breath sounds bilaterally. No audible rales rh onchi or wheezing was noted. CARDIOVASCULAR: Patient is tachycardic at about 110 beats a minute ABDOMEN: Soft and nontender with normal bowel sounds. SKIN: Skin is clear with no lesions or rashes and otherwise unremarkable. NEUROLOGIC: Patient is alert and oriented x3. Cranial nerves II through XII are grossly intact. Motor and sensory are also intact. Normal speech, volume and content. Symmetrical smile. MUSCULOSKELETAL: Normal extremities with adequate strength and full range of motion. No lower extremity swelling or edema. No calf tenderness. LYMPHATICS: No significant lymphadenopathy is noted PSYCHIATRIC: Patient states he wants to kill himself by using heroin. (Twin Ni) Course Vital Signs 12/23/19 12/23/19 11:36 16:21 Temperature 98.3 F 98.3 F Pulse Rate 115 H 115 H Respiratory 18 18 Rate Blood Pressure 145/106 145/106 O2 Sat by Pulse 99 99 Oximetry Medical Decision Making <Twin Ni - Last Filed: 12/23/19 14:59> - Medical Decision Making Dr. Iverson would take over the care of this patient at 3 PM (Twin Ni) Disposition <Twin Ni - Last Filed: 12/23/19 14:59> Is patient prescribed a controlled substance at d/c from ED?: No <Twin Iverson - Last Filed: 12/31/19 14:16> Clinical Impression: Suicidal thoughts, Drug addiction Disposition: HOME SELF-CARE Condition: Good Instructions (If sedation given, give patient instructions): Suicide Prevention (ED), Narcotic Use Disorder (ED) Referrals: None,Stated [Primary Care Provider] - 1-2 days
[2019-12-23] MEDS ORDERED: ACETAMINOPHEN TAB 500 MG TAB PO STA (16:10)
== END 2019-12-23 16:20 | disposition home or self-care (01) ==
LOC: EC 11:25
DX: F14.20 Cocaine dependence, uncomplicated (principal); R45.851 Suicidal ideations; F17.200 Nicotine dependence, unspecified, uncomplicated; Z88.8 Allergy status to other drugs, medicaments and biological substances; Z91.5 Personal history of self-harm
CPT/HCPCS: 99285

== ENCOUNTER 2022-11-19 07:21 | Emergency (ER) | payer BC, OTHER ==
[2022-11-19] MEDS ORDERED: ASPIRIN 81 MG PO STA (07:40)
[2022-11-19] MEDS ORDERED: LIDOCAINE 5% PATCH TOPICAL STA (07:41)
[2022-11-19] MEDS ORDERED: KETOROLAC 15 MG/ML 1 ML VIAL IVP STA (07:41)
[2022-11-19] MEDS ORDERED: IPRATROPIUM-ALBUTEROL 3 ML NEB INHALATION STA (07:44)
--- NOTE | 2022-11-19 07:46 | ED ---
General Adult HPI - General Chief complaint: Chest Pain Stated complaint: chest pain,SOB Time Seen by Provider: 11/19/22 07:30 Source: patient, RN notes reviewed, old records reviewed Mode of arrival: ambulatory Limitations: no limitations - History of Present Illness Initial comments: Patient is a 37-year-old male who presents emergency Department complaining of right-sided chest pain. Began 2 days ago. Please it may be associated with the abnormal but he has had over the last few days. Describes the pain as a sharp sensation located over the anterior right aspect of his chest. Worse with movement of his right arm as well as twisting his thorax. Did have some episodes of posttussive emesis earlier as well. Denies any nausea or vomiting. Denies any diaphoresis episodes. Denies any abdominal pain. Denies any left- sided chest pain. Denies any fevers or known sick contacts. Patient does vape as well as smoke marijuana. He is a remote polysubstance abuser, last used in 2017. He presents as the pain is concerning and wants to make sure that it was not his heart or lungs. Denies any history of cardiac disease. Denies any history of COPD or asthma. Denies any history of blood clots. Denies any lower extremity swelling. Presents for further evaluation at this time. - Related Data Previous Rx's Medication Instructions Recorded Naproxen [Naprosyn] 250 mg PO BID PRN tab 01/26/19 lamoTRIgine [LaMICtal] 100 mg PO DAILY #28 tab 01/26/19 Erythromycin Ophth Oint [Romycin 1 applic RIGHT EYE QID 5 Days #1 03/14/19 Ophth Oint] tube Ibuprofen [Motrin] 600 mg PO Q8HR PRN #30 tab 04/02/19 Clindamycin [Cleocin] 450 mg PO Q6H 10 Days #120 cap 11/30/19 Albuterol Inhaler [Ventolin Hfa 1 puff INHALATION TID #8 gm 11/19/22 Inhaler] Lidocaine 5% Patch [Lidoderm 5% 1 patch TOPICAL DAILY PRN 14 Days 11/19/22 Patch] #14 patch Allergies Allergy/AdvReac Type Severity Reaction Status Date / Time lamotrigine [From Lamictal] Allergy Rash/Hives Verified 11/19/22 07:30 Review of Systems ROS Statement: Those systems with pertinent positive or pertinent negative responses have been documented in the HPI. Review of Systems: CONST: Denies fever EYES: Denies blurry vision ENT: Denies nasal congestion C/V: Endorses chest pain RESP: Endorses cough, shortness of breath and coughing GI: Denies abdominal pain : Denies dysuria SKIN: Denies rash. MSK: Denies joint pain. NEURO: Denies headache ROS Other: All systems not noted in ROS Statement are negative. Past Medical History Past Medical History: No Reported History Additional Past Medical History / Comment(s): Hepatitic C, History of Any Multi-Drug Resistant Organisms: None Reported Past Surgical History: No Surgical Hx Reported Past Psychological History: Anxiety, Bipolar, Depression Smoking Status: Current every day smoker Past Alcohol Use History: None Reported Past Drug Use History: Cocaine, Heroin, Marijuana General Exam - General Exam Comments Initial Comments: General: Appears in no acute distress. HEAD: Normal with no signs of head trauma. EYES: PERRLA, EOMI, conjunctiva normal, no discharge. ENT: Hearing grossly intact, normal oropharynx. RESPIRATORY: Clear breath sounds bilaterally. No wheezes, rales, or rhonchi. No hypoxia. No increased work of breathing. C/V: Regular rate and rhythm. S1 and S2 auscultated, no edema, peripheral pulses 2+ and intact throughout ABD: Abd is soft, nontender, nondistended EXT: Normal range of motion, no obvious deformity. Patient has right-sided anterior chest wall pain. Worse on palpation and with movement of the right upper extremities as well as torso. SKIN: No rashes or lesions observed on exposed skin. NEURO: Alert and oriented 4. Limitations: no limitations Course Vital Signs 11/19/22 11/19/22 11/19/22 07:27 08:40 08:47 Temperature 98.1 F Pulse Rate 73 70 72 Respiratory 22 18 17 Rate Blood Pressure 117/79 O2 Sat by Pulse 98 Oximetry Medical Decision Making - Medical Decision Making Was pt. sent in by a medical professional or institution (, PA, CANTEEN OPERATOR, urgent care, hospital, or shelter...) When possible be specific @ -No Did you speak to anyone other than the patient for history (EMS, parent, family, police, friend...)? What history was obtained from this source @ -No Did you review nursing and triage notes (agree or disagree)? Why? @ -I reviewed and agree with nursing and triage notes Were old charts reviewed (outside hosp., previous admission, EMS record, old EKG, old radiological studies, urgent care reports/EKG's, shelter records)? Report findings @ -No old charts were reviewed Differential Diagnosis (chest pain, altered mental status, abdominal pain women, abdominal pain men, vaginal bleeding, weakness, fever, dyspnea, syncope, headache, dizziness, GI bleed, back pain, seizure, CVA, palpatations, mental health, musculoskeletal)? @ -Differential Chest Pain: Stable Angina, Unstable Angina, STEMI, NSTEMI Aortic Dissection, Pneumothorax, Musculoskeletal, Esophageal Spasm GERD, Cholecystitis, Pancreatitis, Zoster, this is not meant to be an all-inclusive list. EKG interpreted by me (3pts min.). @ -As above X-rays interpreted by me (1pt min.). @ -Chest x-ray revealed no obvious acute cardio pulmonary process. CT interpreted by me (1pt min.). @ -None done U/S interpreted by me (1pt. min.). @ -None done What testing was considered but not performed or refused? (CT, X-rays, U/S, labs)? Why? @ -None What meds were considered but not given or refused? Why? @ -None Did you discuss the management of the patient with other professionals (professionals i.e. , PA, CANTEEN OPERATOR, lab, RT, psych nurse, social worker assistant, corporation lawyer, teacher, operations officer trust department, dependency case manager)? Give summary @ -No Was smoking cessation discussed for >3mins.? @ -No Was critical care preformed (if so, how long)? @ -No Were there social determinants of health that impacted care today? How? (Home lessness, low income, unemployed, alcoholism, drug addiction, transportation, low edu. Level, literacy, decrease access to med. care, long-term, rehab)? @ -No Was there de-escalation of care discussed even if they declined (Discuss DNR or withdrawal of care, Hospice)? DNR status @ -No What co-morbidities impacted this encounter? (DM, HTN, Smoking, COPD, CAD, Cancer, CVA, ARF, Chemo, Hep., AIDS, mental health diagnosis, sleep apnea, morbid obesity)? @ -History of smoking, polysubstance abuse Was patient admitted / discharged? Hospital course, mention meds given and route, prescriptions, significant lab abnormalities, going to OR and other pertinent info. @ -Based on the patient's presentation and physical exam, presents with appears to be chest wall pain as well as a cough. Likely is a muscle strain however we cannot rule out cardiopulmonary etiology at this time. We will obtain cardiopulmonary labs. He will be symptomatically treated with oral aspirin, IV Toradol, lidocaine patch, IV fluids as well as a breathing treatment. Patient was in agreement this plan. Vital signs are within acceptable limits. EKG showed no signs of acute ischemia. Chest x-ray revealed no obvious acute cardiopulmonary process.Patient's laboratory studies returned remarkable for an undetectable troponin, normal d-dimer, negative viral swabs. Remainder of the labs are within acceptable limits. On reevaluation, patient is feeling improved. We discussed his workup. Discussed that he has chest wall pain likely from coughing from bronchospasm from his marijuana use. He states the breathing treatment did help with his coughing and therefore he will be prescribed an albuterol inhaler. Is not actively having an asthma or COPD exacerbation. Recommended he see's using marijuana possible and smoking possible. He was in agreement this plan. Can use [id number] analgesic medications for his chest wall pain which is likely secondary to muscle strain. Recommended albuterol use as needed as well. He will be given a prescription for albuterol and lidocaine patches. I will provide the patient with a prescription for albuterol inhaler, lidocaine patch. I instructed the patient to follow up with their PCP in the next 1-3 days. I provided contact information for follow up with [facility] PCPs. I explained that the patient should return to the emergency department if they experience any worsening symptoms. Strict return precautions were discussed with the patient. The patient expressed understanding of these instructions. I answered all questions that the patient had. The patient was discharged home in good condition with their prescriptions and follow up information. Undiagnosed new problem with uncertain prognosis? @ -No Drug Therapy requiring intensive monitoring for toxicity (Heparin, Nitro, Insulin, Cardizem)? @ -No Were any procedures done? @ -No Diagnosis/symptom? @ -Chest wall pain, bronchospasm from smoking Acute, or Chronic, or Acute on Chronic? @ -Acute Uncomplicated (without systemic symptoms) or Complicated (systemic symptoms)? @ -Uncomplicated Side effects of treatment? @ -No Exacerbation, Progression, or Severe Exacerbation? @ -No Poses a threat to life or bodily function? How? (Chest pain, [place], [place], pneumonia, PE, COPD, DKA, ARF, appy, cholecystitis, CVA, Diverticulitis, Homicidal, Suicidal, threat to staff... and all critical care pts) @ -No - Lab Data Result diagrams: 11/19/22 07:45 11/19/22 07:45 Lab Results 11/19/22 11/19/22 11/19/22 Range/Units 07:45 07:45 07:45 WBC 10.3 (3.8-10.6) k/uL RBC 5.73 (4.30-5.90) m/uL Hgb 16.0 (13.0-17.5) gm/dL Hct 48.0 (39.0-53.0) % MCV 83.8 (80.0-100.0) fL MCH 27.9 (25.0-35.0) pg MCHC 33.3 (31.0-37.0) g/dL RDW 13.1 (11.5-15.5) % Plt Count 255 (150-450) k/uL MPV 8.1 Neutrophils % 76 % Lymphocytes % 15 % Monocytes % 6 % Eosinophils % 1 % Basophils % 1 % Neutrophils # 7.8 H (1.3-7.7) k/uL Lymphocytes # 1.5 (1.0-4.8) k/uL Monocytes # 0.7 (0-1.0) k/uL Eosinophils # 0.1 (0-0.7) k/uL Basophils # 0.1 (0-0.2) k/uL PT 10.4 (9.0-12.0) sec INR 1.0 (<1.2) APTT 26.2 (22.0-30.0) sec D-Dimer 0.45 (<0.60) mg/L FEU Sodium 138 (137-145) mmol/L Potassium 4.4 (3.5-5.1) mmol/L Chloride 105 (98-107) mmol/L Carbon Dioxide 24 (22-30) mmol/L Anion Gap 9 mmol/L BUN 8 L (9-20) mg/dL Creatinine 0.88 (0.66-1.25) mg/dL Est GFR (CKD-EPI)AfAm >90 (>60 ml/min/1.73 sqM) Est GFR (CKD-EPI)NonAf >90 (>60 ml/min/1.73 sqM) Glucose 88 (74-99) mg/dL Calcium 9.3 (8.4-10.2) mg/dL Magnesium 2.0 (1.6-2.3) mg/dL Total Bilirubin 0.7 (0.2-1.3) mg/dL AST 41 (17-59) U/L ALT 30 (4-49) U/L Alkaline Phosphatase 109 (38-126) U/L Troponin I (0.000-0.034) ng/mL NT-Pro-B Natriuret Pep pg/mL Total Protein 7.8 (6.3-8.2) g/dL Albumin 4.6 (3.5-5.0) g/dL Influenza Type A (PCR) (Not Detectd) Influenza Type B (PCR) (Not Detectd) RSV (PCR) (Not Detectd) SARS-CoV-2 (PCR) (Not Detectd) 11/19/22 11/19/22 11/19/22 Range/Units 07:45 07:45 07:49 WBC (3.8-10.6) k/uL RBC (4.30-5.90) m/uL Hgb (13.0-17.5) gm/dL Hct (39.0-53.0) % MCV (80.0-100.0) fL MCH (25.0-35.0) pg MCHC (31.0-37.0) g/dL RDW (11.5-15.5) % Plt Count (150-450) k/uL MPV Neutrophils % % Lymphocytes % % Monocytes % % Eosinophils % % Basophils % % Neutrophils # (1.3-7.7) k/uL Lymphocytes # (1.0-4.8) k/uL Monocytes # (0-1.0) k/uL Eosinophils # (0-0.7) k/uL Basophils # (0-0.2) k/uL PT (9.0-12.0) sec INR (<1.2) APTT (22.0-30.0) sec D-Dimer (<0.60) mg/L FEU Sodium (137-145) mmol/L Potassium (3.5-5.1) mmol/L Chloride (98-107) mmol/L Carbon Dioxide (22-30) mmol/L Anion Gap mmol/L BUN (9-20) mg/dL Creatinine (0.66-1.25) mg/dL Est GFR (CKD-EPI)AfAm (>60 ml/min/1.73 sqM) Est GFR (CKD-EPI)NonAf (>60 ml/min/1.73 sqM) Glucose (74-99) mg/dL Calcium (8.4-10.2) mg/dL Magnesium (1.6-2.3) mg/dL Total Bilirubin (0.2-1.3) mg/dL AST (17-59) U/L ALT (4-49) U/L Alkaline Phosphatase (38-126) U/L Troponin I <0.012 (0.000-0.034) ng/mL NT-Pro-B Natriuret Pep 24 pg/mL Total Protein (6.3-8.2) g/dL Albumin (3.5-5.0) g/dL Influenza Type A (PCR) Not Detected (Not Detectd) Influenza Type B (PCR) Not Detected (Not Detectd) RSV (PCR) Not Detected (Not Detectd) SARS-CoV-2 (PCR) Not Detected (Not Detectd) - EKG Data -: EKG Interpreted by Me EKG Comments: 12-lead Electrocardiogram Interpretation Note EKG was reviewed and interpreted by myself. 12-lead ECG performed at 0736 is interpreted by me as revealing sinus bradycardia at a rate of 57 beats per mi nute. [place] is normal. IN interval is 116 ms, QRS duration 70 ms, QTc is 416 ms.. There were no ST or T wave abnormalities to suggest myocardial ischemia or injury. R wave progression across the precordium was satisfactory. By my interpretation this EKG is non-diagnostic for acute ischemia. Disposition Clinical Impression: Chest wall pain, Bronchospasm Disposition: HOME SELF-CARE Condition: Good Instructions (If sedation given, give patient instructions): Chest Wall Pain (ED) Prescriptions: Lidocaine 5% Patch [Lidoderm 5% Patch] 1 patch TOPICAL DAILY PRN 14 Days #14 patch PRN Reason: Pain Albuterol Inhaler [Ventolin Hfa Inhaler] 1 puff INHALATION TID #8 gm Is patient prescribed a controlled substance at d/c from ED?: No Referrals: None,Stated [Primary Care Provider] - 1-2 days Forms: Area PCPs Time of Disposition: 09:08
[2022-11-19] MEDS ORDERED: SODIUM CHLORIDE 0.9% 1,000 ML IV STA (07:48)
--- NOTE | 2022-11-19 08:09 | XR ---
EXAMINATION TYPE: XR chest 2V DATE OF EXAM: 11/19/2022 COMPARISON: 04/02/2019 HISTORY: Chest pain TECHNIQUE: Frontal and lateral views of the chest are obtained. FINDINGS: There is no focal air space opacity. No evidence for pneumothorax. No pleural effusion. The cardiac silhouette size is within normal limits. The osseous structures are grossly intact. IMPRESSION: 1. No acute cardiopulmonary process.
[2022-11-19 08:10] LABS: Basophils # (A) 0.1 k/uL (0-0.2); Basophils % (A) 1 %; Eosinophils # (A) 0.1 k/uL (0-0.7); Eosinophils % (A) 1 %; Lymphocytes # (A) 1.5 k/uL (1.0-4.8); Lymphocytes % (A) 15 %; MCH 27.9 pg (25.0-35.0); MCHC 33.3 g/dL (31.0-37.0); MCV 83.8 fL (80.0-100.0); Mean Platelet Volume 8.1; Monocytes # (A) 0.7 k/uL (0-1.0); Monocytes % (A) 6 %; Neutrophils # (A) 7.8 k/uL (1.3-7.7); Neutrophils % (A) 76 %; Platelet Count 255 k/uL (150-450); RBC 5.73 m/uL (4.30-5.90); RDW 13.1 % (11.5-15.5); WBC 10.3 k/uL (3.8-10.6)
[2022-11-19 08:22] LABS: ALT 30 U/L (4-49); AST 41 U/L (17-59); African American GFR (CKD) >90 (>60 ml/min/1.73 sqM); Albumin 4.6 g/dL (3.5-5.0); Alkaline Phosphatase 109 U/L (38-126); Anion Gap 9 mmol/L; Blood Urea Nitrogen 8 mg/dL (9-20); Calcium 9.3 mg/dL (8.4-10.2); Carbon Dioxide 24 mmol/L (22-30); Chloride 105 mmol/L (98-107); Glucose 88 mg/dL (74-99); Non-African American GFR(CKD) >90 (>60 ml/min/1.73 sqM); Potassium 4.4 mmol/L (3.5-5.1); Sodium 138 mmol/L (137-145); Total Bilirubin 0.7 mg/dL (0.2-1.3); Total Protein 7.8 g/dL (6.3-8.2)
[2022-11-19 08:24] LABS: Partial Thromboplastin Time 26.2 sec (22.0-30.0); Prothrombin Time 10.4 sec (9.0-12.0)
[2022-11-19 09:26] VITALS: BP 128/95; PULSE 65; RESP 19; TEMP 98
== END 2022-11-19 09:26 | disposition home or self-care (01) ==
LOC: EC 07:21
DX: R07.89 Other chest pain (principal); J98.01 Acute bronchospasm; Z86.59 Personal history of other mental and behavioral disorders; F17.200 Nicotine dependence, unspecified, uncomplicated; F12.90 Cannabis use, unspecified, uncomplicated; Z88.8 Allergy status to other drugs, medicaments and biological substances; Z20.822 Contact with and (suspected) exposure to COVID-19
CPT/HCPCS: 36415; 94640; 93005; 85379; 83880; 80053; 83735; 84484; 85025; 85610; 85730; 87636; 71046; 99285; 96374; 96361; J1885

== ENCOUNTER 2024-02-14 13:29 | Emergency (ER) | payer OTHER ==
[2024-02-14 13:32] VITALS: TEMP 98
--- NOTE | 2024-02-14 14:08 | ED ---
Skin/Abscess/FB HPI - General Chief complaint: Skin/Abscess/Foreign Body Stated complaint: Rash Time Seen by Provider: 02/14/24 13:34 Source: patient, RN notes reviewed Mode of arrival: ambulatory Limitations: no limitations - History of Present Illness Initial comments: 39-year-old male presents emergency department chief complaint of rash to left side of his neck. Patient is noticed today he states not painful minimal itchiness. Denies any new products denies any fevers or chills no recent illnesses. Patient offers no other complaints. - Related Data Previous Rx's Medication Instructions Recorded Naproxen [Naprosyn] 250 mg PO BID PRN tab 01/26/19 lamoTRIgine [LaMICtal] 100 mg PO DAILY #28 tab 01/26/19 Erythromycin Ophth Oint [Romycin 1 applic RIGHT EYE QID 5 Days #1 03/14/19 Ophth Oint] tube Ibuprofen [Motrin] 600 mg PO Q8HR PRN #30 tab 04/02/19 Clindamycin [Cleocin] 450 mg PO Q6H 10 Days #120 cap 11/30/19 Albuterol Inhaler [Ventolin Hfa 1 puff INHALATION TID #8 gm 11/19/22 Inhaler] Lidocaine 5% Patch [Lidoderm 5% 1 patch TOPICAL DAILY PRN 14 Days 11/19/22 Patch] #14 patch Albuterol Inhaler [Ventolin Hfa 2 puff INHALATION TID #8 gm 03/21/23 Inhaler] methylPREDNISolone Dose Pack 4 mg PO DIRECTED #1 packet 03/21/23 [Medrol Dose Pack] Triamcinolone 0.1% Cream [Kenalog 1 applicatio TOPICAL BID #30 gram 02/14/24 0.1% Cream] Allergies Allergy/AdvReac Type Severity Reaction Status Date / Time lamotrigine [From Lamictal] Allergy Rash/Hives Verified 02/14/24 13:32 Review of Systems ROS Statement: Those systems with pertinent positive or pertinent negative responses have been documented in the HPI. ROS Other: All systems not noted in ROS Statement are negative. Past Medical History Past Medical History: No Reported History Additional Past Medical History / Comment(s): Hepatitic C, History of Any Multi-Drug Resistant Organisms: None Reported Past Surgical History: No Surgical Hx Reported Past Psychological History: Anxiety, Bipolar, Depression Smoking Status: Current every day smoker Past Alcohol Use History: None Reported Past Drug Use History: Cocaine, Heroin, IV Drug Use, Marijuana, Methamphetamine, Opiates, Prescription Drug Abuse General Exam Limitations: no limitations General appearance: alert, in no apparent distress Head exam: Present: atraumatic, normocephalic, normal inspection Eye exam: Present: normal appearance, PERRL, EOMI. Absent: scleral icterus, conjunctival injection, periorbital swelling Respiratory exam: Present: normal lung sounds bilaterally. Absent: respiratory distress, wheezes, rales, rhonchi, stridor Cardiovascular Exam: Present: regular rate, normal rhythm, normal heart sounds. Absent: systolic murmur, diastolic murmur, rubs, gallop, clicks Skin exam: Present: warm, dry, intact, normal color, rash (Erythematous papular rash to left side of neck with mild excoriations) Course Vital Signs 02/14/24 13:30 Temperature 98 F Pulse Rate 99 Respiratory 16 Rate Blood Pressure 152/91 O2 Sat by Pulse 96 Oximetry Medical Decision Making - Medical Decision Making Was pt. sent in by a medical professional or institution ( PA, EARLY CHILDHOOD SPECIAL EDUCATOR, urgent care, hospital, or jail...) When possible be specific @ -No Did you speak to anyone other than the patient for history (EMS, parent, family, police, friend...)? What history was obtained from this source @ -No Did you review nursing and triage notes (agree or disagree)? Why? @ -I reviewed and agree with nursing and triage notes Were old charts reviewed (outside hosp., previous admission, EMS record, old EKG, old radiological studies, urgent care reports/EKG's, jail records)? Report findings @ -No old charts were reviewed Differential Diagnosis (chest pain, altered mental status, abdominal pain women, abdominal pain men, vaginal bleeding, weakness, fever, dyspnea, syncope, headache, dizziness, GI bleed, back pain, seizure, CVA, palpatations, mental health, musculoskeletal)? @ -Contact dermatitis, allergic reaction, scabies, shingles EKG interpreted by me (3pts min.). @ -[None X-rays interpreted by me (1pt min.). @ -None done CT interpreted by me (1pt min.). @ -None done U/S interpreted by me (1pt. min.). @ -None done What testing was considered but not performed or refused? (CT, X-rays, U/S, labs)? Why? @ -None What meds were considered but not given or refused? Why? @ -None Did you discuss the management of the patient with other professionals (professionals i.e. , PA, EARLY CHILDHOOD SPECIAL EDUCATOR, lab, RT, psych nurse, psychologist social, solar sales advisor, teacher, tactical intelligence officer, correctional counselor/case manager)? Give summary @ -No Was smoking cessation discussed for >3mins.? @ -No Was critical care preformed (if so, how long)? @ -No Were there social determinants of health that impacted care today? How? (Homelessness, low income, unemployed, alcoholism, drug addiction, transportation, low edu. Level, literacy, decrease access to med. care, alf, rehab)? @ -No Was there de-escalation of care discussed even if they declined (Discuss DNR or withdrawal of care, Hospice)? DNR status @ -No What co-morbidities impacted this encounter? (DM, HTN, Smoking, COPD, CAD, Cancer, CVA, ARF, Chemo, Hep., AIDS, mental health diagnosis, sleep apnea, morbid obesity)? @ -None Was patient admitted / discharged? Hospital course, mention meds given and r oute, prescriptions, significant lab abnormalities, going to OR and other pertinent info. @ -Discharge patient appears to have contact dermatitis on the left side of his neck was given dose steroids, Kenalog cream. Undiagnosed new problem with uncertain prognosis? @ -No Drug Therapy requiring intensive monitoring for toxicity (Heparin, Nitro, Insulin, Cardizem)? @ -No Were any procedures done? @ -No Diagnosis/symptom? @ -Contact dermatitis Acute, or Chronic, or Acute on Chronic? @ -acute Uncomplicated (without systemic symptoms) or Complicated (systemic symptoms)? @ -complicated Side effects of treatment? @ -No Exacerbation, Progression, or Severe Exacerbation? @ -No Poses a threat to life or bodily function? How? (Chest pain, [place], [place], pneumonia, PE, COPD, DKA, ARF, appy, cholecystitis, CVA, Diverticulitis, Homicidal, Suicidal, threat to staff... and all critical care pts) @ -No Disposition Clinical Impression: Contact dermatitis Disposition: HOME SELF-CARE Condition: Stable Instructions (If sedation given, give patient instructions): Contact Dermatitis (ED) Additional Instructions: Please return to the Emergency Department if symptoms worsen or any other concerns. Prescriptions: Triamcinolone 0.1% Cream [Kenalog 0.1% Cream] 1 applicatio TOPICAL BID #30 gram Is patient prescribed a controlled substance at d/c from ED?: No Referrals: None,Stated [Primary Care Provider] - 1-2 days Time of Disposition: 14:08
[2024-02-14] MEDS: predniSONE 50 MG TAB PO STA (15:14)
[2024-02-14 15:20] VITALS: BP 145/87; PULSE 91; RESP 18
== END 2024-02-14 15:20 | disposition home or self-care (01) ==
LOC: EC 13:29
CPT/HCPCS: 99282

== ENCOUNTER 2024-09-05 21:39 | Emergency (ER) | payer SELFPAY ==
[2024-09-05 21:54] VITALS: TEMP 98.2
[2024-09-05] MEDS: IBUPROFEN 600 MG TAB PO STA (23:42)
[2024-09-05] MEDS: ONDANSETRON ODT 4 MG TAB PO STA (23:43)
--- NOTE | 2024-09-06 00:07 | XR ---
EXAM: XR Chest, 2 Views CLINICAL HISTORY: ITS.REASON XR Reason: cough TECHNIQUE: Frontal and lateral views of the chest. COMPARISON: Chest radiograph on 03/21/2023 FINDINGS: Hardware: None. Lungs/pleura: Normal. No focal consolidation. No pleural effusion or pneumothorax. Heart/mediastinum: Normal. No cardiomegaly. Soft tissues: Unremarkable. Bones: No acute fracture. Upper abdomen: Normal. IMPRESSION: No acute disease identified.
[2024-09-06 00:31] LABS: Influenza A Detected (Not Detectd); Influenza B Not Detected (Not Detectd); RSV Not Detected (Not Detectd)
--- NOTE | 2024-09-06 01:10 | ED ---
Headache HPI - General Chief Complaint: Headache Stated Complaint: NVD head pressure Time Seen by Provider: 09/05/24 22:38 Mode of arrival: ambulatory Limitations: no limitations - History of Present Illness Initial Comments: 39-year-old male presenting with chief complaint of URI-like symptoms. Patient is also complaining of headache diarrhea nausea vomiting and bodyaches. Symp toms ongoing for the last 2 days. He reports he is currently living in a homeless longterm which makes dealing with his symptoms more difficult. No chest pain or difficulty breathing. No abdominal pain. No blood in his stool or emesis. No vision or hearing changes. No numbness tingling or weakness. - Related Data Previous Rx's Medication Instructions Recorded Naproxen [Naprosyn] 250 mg PO BID PRN tab 01/26/19 lamoTRIgine [LaMICtal] 100 mg PO DAILY #28 tab 01/26/19 Erythromycin Ophth Oint [Romycin 1 applic RIGHT EYE QID 5 Days #1 03/14/19 Ophth Oint] tube Ibuprofen [Motrin] 600 mg PO Q8HR PRN #30 tab 04/02/19 Clindamycin [Cleocin] 450 mg PO Q6H 10 Days #120 cap 11/30/19 Albuterol Inhaler [Ventolin Hfa 1 puff INHALATION TID #8 gm 11/19/22 Inhaler] Lidocaine 5% Patch [Lidoderm 5% 1 patch TOPICAL DAILY PRN 14 Days 11/19/22 Patch] #14 patch Albuterol Inhaler [Ventolin Hfa 2 puff INHALATION TID #8 gm 03/21/23 Inhaler] methylPREDNISolone Dose Pack 4 mg PO DIRECTED #1 packet 03/21/23 [Medrol Dose Pack] Triamcinolone 0.1% Cream [Kenalog 1 applicatio TOPICAL BID #30 gram 02/14/24 0.1% Cream] Ondansetron Odt [Zofran Odt] 4 mg PO Q8HR PRN #20 tab 09/06/24 Oseltamivir [Tamiflu] 75 mg PO Q12HR 5 Days #10 cap 09/06/24 Allergies Allergy/AdvReac Type Severity Reaction Status Date / Time lamotrigine [From Lamictal] Allergy Rash/Hives Verified 09/05/24 21:54 Review of Systems ROS Statement: Those systems with pertinent positive or pertinent negative responses have been documented in the HPI. ROS Other: All systems not noted in ROS Statement are negative. Past Medical History Past Medical History: No Reported History Additional Past Medical History / Comment(s): Hepatitic C, History of Any Multi-Drug Resistant Organisms: None Reported Past Surgical History: No Surgical Hx Reported Past Psychological History: Anxiety, Bipolar, Depression Smoking Status: Current every day smoker Past Alcohol Use History: None Reported Past Drug Use History: Cocaine, Heroin, IV Drug Use, Marijuana, Methamphetamine, Opiates, Prescription Drug Abuse General Exam Limitations: no limitations General appearance: alert, in no apparent distress Head exam: Present: atraumatic, normocephalic, normal inspection Eye exam: Present: normal appearance, EOMI. Absent: periorbital swelling ENT exam: Present: mucous membranes moist Neck exam: Present: normal inspection. Absent: meningismus Respiratory exam: Present: normal lung sounds bilaterally. Absent: respiratory distress, wheezes, rales, rhonchi, stridor Cardiovascular Exam: Present: regular rate, normal rhythm, normal heart sounds. Absent: systolic murmur, diastolic murmur, rubs, gallop, clicks GI/Abdominal exam: Present: soft. Absent: distended, tenderness, guarding, rebound, rigid Neurological exam: Present: alert, oriented X3 Psychiatric exam: Present: normal affect, normal mood Skin exam: Present: warm, dry, normal color Course Vital Signs 09/05/24 09/06/24 21:50 01:22 Temperature 98.2 F 98.2 F Pulse Rate 90 82 Respiratory 18 19 Rate Blood Pressure 121/91 122/79 O2 Sat by Pulse 98 98 Oximetry Medical Decision Making - Medical Decision Making Was pt. sent in by a medical professional or institution (, PA, TRADE PROMOTION ANALYST, urgent care, hospital, or fci...) When possible be specific @ -No Did you speak to anyone other than the patient for history (EMS, parent, family, police, friend...)? What history was obtained from this source @ -No Did you review nursing and triage notes (agree or disagree)? Why? @ -I reviewed and agree with nursing and triage notes Were old charts reviewed (outside hosp., previous admission, EMS record, old EKG, old radiological studies, urgent care reports/EKG's, fci records)? Report findings @ -No old charts were reviewed Differential Diagnosis (chest pain, altered mental status, abdominal pain women, abdominal pain men, vaginal bleeding, weakness, fever, dyspnea, syncope, headache, dizziness, GI bleed, back pain, seizure, CVA, palpatations, mental health, musculoskeletal)? @ -Differential includes influenza, RSV, COVID, pneumonia, bronchitis, not an all-inclusive list EKG interpreted by me (3pts min.). @ -As above X-rays interpreted by me (1pt min.). @ -Chest x-ray shows no acute process CT interpreted by me (1pt min.). @ -None done U/S interpreted by me (1pt. min.). @ -None done What testing was considered but not performed or refused? (CT, X-rays, U/S, labs)? Why? @ -None What meds were considered but not given or refused? Why? @ -None Did you discuss the management of the patient with other professionals (professionals i.e. , PA, TRADE PROMOTION ANALYST, lab, RT, psych nurse, social worker assistant, ob gyn, teacher, fisheries technical officer, disease case manager)? Give summary @ -No Was smoking cessation discussed for >3mins.? @ -No Was critical care preformed (if so, how long)? @ -No Were there social determinants of health that impacted care today? How? (Homelessness, low income, unemployed, alcoholism, drug addiction, transporta tion, low edu. Level, literacy, decrease access to med. care, care home, rehab)? @ -No Was there de-escalation of care discussed even if they declined (Discuss DNR or withdrawal of care, Hospice)? DNR status @ -No What co-morbidities impacted this encounter? (DM, HTN, Smoking, COPD, CAD, Cancer, CVA, ARF, Chemo, Hep., AIDS, mental health diagnosis, sleep apnea, morbid obesity)? @ -None Was patient admitted / discharged? Hospital course, mention meds given and route, prescriptions, significant lab abnormalities, going to OR and other pertinent info. @ -39-year-old male presenting with chief complaint of URI-like symptoms nausea vomiting and diarrhea. History and physical examination are conducted. Patient given Motrin and Zofran. He is positive for influenza A. Chest x-ray shows no acute process. Patient is educated on today's findings. Patient would like to start Tamiflu, Tamiflu and Zofran sent to his pharmacy. Follow-up with PCP. Report back to ER with any new or worsening symptoms. Discussed return parameters and answered all questions. Patient conveyed verbal understanding and agreed to the plan. I discussed this case in detail with my attending Dr. Ruano Undiagnosed new problem with uncertain prognosis? @ -No Drug Therapy requiring intensive monitoring for toxicity (Heparin, Nitro, Insulin, Cardizem)? @ -No Were any procedures done? @ -No Diagnosis/symptom? @ -Influenza Acute, or Chronic, or Acute on Chronic? @ -Acute Uncomplicated (without systemic symptoms) or Complicated (systemic symptoms)? @ -Uncomplicated Side effects of treatment? @ -No Exacerbation, Progression, or Severe Exacerbation? @ -No Poses a threat to life or bodily function? How? (Chest pain, [place], [place], pneumonia, PE, COPD, DKA, ARF, appy, cholecystitis, CVA, Diverticulitis, Homicidal, Suicidal, threat to staff... and all critical care pts) @ -Low likelihood - Lab Data Lab Results 09/05/24 Range/Units 23:48 Influenza Type A (PCR) Detected A (Not Detectd) Influenza Type B (PCR) Not Detected (Not Detectd) RSV (PCR) Not Detected (Not Detectd) SARS-CoV-2 (PCR) Not Detected (Not Detectd) Disposition Clinical Impression: Influenza A Disposition: HOME SELF-CARE Condition: Good Instructions (If sedation given, give patient instructions): Influenza (ED) Additional Instructions: Follow-up with PCP. Report back to ER with any new or worsening symptoms. Prescriptions: Oseltamivir [Tamiflu] 75 mg PO Q12HR 5 Days #10 cap Ondansetron Odt [Zofran Odt] 4 mg PO Q8HR PRN #20 tab PRN Reason: Nausea Is patient prescribed a controlled substance at d/c from ED?: No Referrals: None,Stated [Primary Care Provider] - 1-2 days Forms: Area PCPs Time of Disposition: 01:10
[2024-09-06 01:23] VITALS: BP 122/79; PULSE 82; RESP 19
== END 2024-09-06 01:30 | disposition home or self-care (01) ==
LOC: EC 21:39
DX: J10.1 Influenza due to other identified influenza virus with other respiratory manifestations (principal); F17.200 Nicotine dependence, unspecified, uncomplicated; Z59.01 Sheltered homelessness; Z88.8 Allergy status to other drugs, medicaments and biological substances
CPT/HCPCS: 71046; 87636; 99284

== ENCOUNTER 2024-12-26 15:08 | Emergency (ER) | payer OTHER ==
--- NOTE | 2024-12-26 16:39 | ED ---
Head Injury HPI - General Chief complaint: Head Injury Stated complaint: got hit on the head Time Seen by Provider: 12/26/24 15:20 Source: patient, RN notes reviewed Mode of arrival: ambulatory Limitations: no limitations - History of Present Illness Initial comments: 39-year-old male presenting to the emergency room complaints of a headache after a head injury. Patient states that he was sitting at [employer] eating before he went to go to work at a shift when the light fixture fell from the ceiling and hit him on the top of the head. Patient denies loss of consciousness at the time of the injury. Patient states at the time of the injury he feels mildly nauseated, head neck pain, and a headache and dizziness. Patient currently states that he is feeling well is denying headache, neck pain, visual disturbances. - Related Data Previous Rx's Medication Instructions Recorded Naproxen [Naprosyn] 250 mg PO BID PRN tab 01/26/19 lamoTRIgine [LaMICtal] 100 mg PO DAILY #28 tab 01/26/19 Erythromycin Ophth Oint [Romycin 1 applic RIGHT EYE QID 5 Days #1 03/14/19 Ophth Oint] tube Ibuprofen [Motrin] 600 mg PO Q8HR PRN #30 tab 04/02/19 Clindamycin [Cleocin] 450 mg PO Q6H 10 Days #120 cap 11/30/19 Albuterol Inhaler [Ventolin Hfa 1 puff INHALATION TID #8 gm 11/19/22 Inhaler] Lidocaine 5% Patch [Lidoderm 5% 1 patch TOPICAL DAILY PRN 14 Days 11/19/22 Patch] #14 patch Albuterol Inhaler [Ventolin Hfa 2 puff INHALATION TID #8 gm 03/21/23 Inhaler] methylPREDNISolone Dose Pack 4 mg PO DIRECTED #1 packet 03/21/23 [Medrol Dose Pack] Triamcinolone 0.1% Cream [Kenalog 1 applicatio TOPICAL BID #30 gram 02/14/24 0.1% Cream] Ondansetron Odt [Zofran Odt] 4 mg PO Q8HR PRN #20 tab 09/06/24 Oseltamivir [Tamiflu] 75 mg PO Q12HR 5 Days #10 cap 09/06/24 Allergies/Adverse reactions: Allergies Allergy/AdvReac Type Severity Reaction Status Date / Time lamotrigine [From Lamictal] Allergy Rash/Hives Verified 09/05/24 21:54 Review of Systems ROS Statement: Those systems with pertinent positive or pertinent negative responses have been documented in the HPI. ROS Other: All systems not noted in ROS Statement are negative. Past Medical History Past Medical History: No Reported History Additional Past Medical History / Comment(s): Hepatitic C, History of Any Multi-Drug Resistant Organisms: None Reported Past Surgical History: No Surgical Hx Reported Past Psychological History: Anxiety, Bipolar, Depression Smoking Status: Current every day smoker Past Alcohol Use History: None Reported Past Drug Use History: Cocaine, Heroin, IV Drug Use, Marijuana, Methamphetamine, Opiates, Prescription Drug Abuse General Exam Limitations: no limitations Head exam: Present: atraumatic, normocephalic, normal inspection Eye exam: Present: normal appearance, PERRL, EOMI. Absent: scleral icterus, conjunctival injection, periorbital swelling Respiratory exam: Present: normal lung sounds bilaterally. Absent: respiratory distress, wheezes, rales, rhonchi, stridor Cardiovascular Exam: Present: regular rate, normal rhythm, normal heart sounds. Absent: systolic murmur, diastolic murmur, rubs, gallop, clicks GI/Abdominal exam: Present: soft, normal bowel sounds. Absent: distended, tenderness, guarding, rebound, rigid Extremities exam: Present: normal inspection, full ROM, normal capillary refill. Absent: tenderness, pedal edema, joint swelling, calf tenderness Back exam: Present: normal inspection Neurological exam: Present: alert, oriented X3, CN II-XII intact Course Vital Signs 12/26/24 12/26/24 15:41 16:59 Temperature 97.5 F L 97.9 F Pulse Rate 92 86 Respiratory 16 18 Rate Blood Pressure 118/80 120/76 O2 Sat by Pulse 98 99 Oximetry Medical Decision Making - Medical Decision Making Was pt. sent in by a medical professional or institution (, PA, TRANSPORTATION ANALYST, urgent care, hospital, or long term...) When possible be specific @ -No Did you speak to anyone other than the patient for history (EMS, parent, family, police, friend...)? What history was obtained from this source @ -No Did you review nursing and triage notes (agree or disagree)? Why? @ -I reviewed and agree with nursing and triage notes Were old charts reviewed (outside hosp., previous admission, EMS record, old EKG, old radiological studies, urgent care reports/EKG's, long term records)? Report findings @ -No old charts were reviewed Differential Diagnosis (chest pain, altered mental status, abdominal pain women, abdominal pain men, vaginal bleeding, weakness, fever, dyspnea, syncope, headache, dizziness, GI bleed, back pain, seizure, CVA, palpatations, mental health, musculoskeletal)? @ -Concussion, contusion, intracranial hemorrhage, this list is not all inclusive EKG interpreted by me (3pts min.). @ -None X-rays interpreted by me (1pt min.). @ -None done CT interpreted by me (1pt min.). @ -None done U/S interpreted by me (1pt. min.). @ -None done What testing was considered but not performed or refused? (CT, X-rays, U/S, labs)? Why? @ -CT imaging of the head was considered but deferred as patient did not lose consciousness is not having a headache, no postinjury vomiting and he is well- appearing. CT will be deferred at this time. What meds were considered but not given or refused? Why? @ -None Did you discuss the management of the patient with other professionals (professionals i.e. , PA, TRANSPORTATION ANALYST, lab, RT, psych nurse, social insurance adviser, energy systems laboratory director, teacher, bank operations officer, oil field caser)? Give summary @ -No Was smoking cessation discussed for >3mins.? @ -No Was critical care preformed (if so, how long)? @ -No Were there social determinants of health that impacted care today? How? (Homelessness, low income, unemployed, alcoholism, drug addiction, transportation, low edu. Level, literacy, decrease access to med. care, penitentiary, rehab)? @ -No Was there de-escalation of care discussed even if they declined (Discuss DNR or withdrawal of care, Hospice)? DNR status @ -No What co-morbidities impacted this encounter? (DM, HTN, Smoking, COPD, CAD, Cancer, CVA, ARF, Chemo, Hep., AIDS, mental health diagnosis, sleep apnea, morbid obesity)? @ -None Was patient admitted / discharged? Hospital course, mention meds given and route, prescriptions, significant lab abnormalities, going to OR and other pertinent info. @ -Discharge. 39-year-old male presenting after head injury. Overall patient is well-appearing no signs distress. Patient has no complaints at this time. There are no signs of laceration. Patient is provided with Motrin and instructed to continue supportive treatment. Return parameters discussed. Case discussed with Dr. Iverson Undiagnosed new problem with uncertain prognosis? @ -No Drug Therapy requiring intensive monitoring for toxicity (Heparin, Nitro, Insulin, Cardizem)? @ -No Were any procedures done? @ -No Diagnosis/symptom? @ -Head injury Acute, or Chronic, or Acute on Chronic? @ -Acute Uncomplicated (without systemic symptoms) or Complicated (systemic symptoms)? @ -Uncomplicated Side effects of treatment? @ -No Exacerbation, Progression, or Severe Exacerbation? @ -No Poses a threat to life or bodily function? How? (Chest pain, [place], [place], pneumonia, PE, COPD, DKA, ARF, appy, cholecystitis, CVA, Diverticulitis, Homicidal, Suicidal, threat to staff... and all critical care pts) @ -No Disposition Clinical Impression: Head injury Disposition: HOME SELF-CARE Condition: Good Instructions (If sedation given, give patient instructions): Concussion (ED) Additional Instructions: Please return to the Emergency Department if symptoms worsen or any other concerns. Is patient prescribed a controlled substance at d/c from ED?: No Referrals: None,Stated [Primary Care Provider] - 1-2 days Time of Disposition: 16:39
[2024-12-26] MEDS: IBUPROFEN 600 MG TAB PO STA (16:53)
[2024-12-26 17:00] VITALS: BP 120/76; PULSE 86; RESP 18; TEMP 97.9
== END 2024-12-26 17:01 | disposition home or self-care (01) ==
LOC: EC 15:08
DX: S09.90XA Unspecified injury of head, initial encounter (principal); F17.200 Nicotine dependence, unspecified, uncomplicated; Z88.8 Allergy status to other drugs, medicaments and biological substances; W20.8XXA Other cause of strike by thrown, projected or falling object, initial encounter; Y92.511 Restaurant or cafe as the place of occurrence of the external cause
CPT/HCPCS: 99283